=== PATIENT | female | born 1945 | race Caucasian/White ===

== ENCOUNTER 2018-04-21 09:12 | Observation (INO) | payer MEDICARE ==
[2018-04-21 09:28] LABS: POC GLUCOSE 111 mg/dL (70-99)
[2018-04-21 09:56] LABS: ADD MAN DIFF? NO
[2018-04-21 09:58] LABS: BASO # 0.1 x10^3/uL (0.0-0.2); BASO % 1 % (0-3); EOS # 0.1 x10^3/uL (0.0-0.7); EOS % 1 % (0-3); HEMATOCRIT 39.4 % (36.0-47.0); HEMOGLOBIN 13.8 g/dL (12.0-15.5); LYMPH # 1.3 x10^3/uL (1.0-4.8); LYMPH % 17 % (24-48); MEAN CORPUSCULAR HEMOGLOBIN 31 pg (25-35); MEAN CORPUSCULAR HGB CONC 35 g/dL (31-37); MEAN CORPUSCULAR VOLUME 87 fL (79-100); MONO # 0.4 x10^3/uL (0.0-1.1); MONO % 5 % (0-9); NEUT # 5.7 x10^3uL (1.8-7.7); NEUT % 75 % (31-73); PLATELET COUNT 236 x10^3/uL (140-400); RED BLOOD COUNT 4.51 x10^6/uL (3.50-5.40); RED CELL DISTRIBUTION WIDTH 13.4 % (11.5-14.5); WHITE BLOOD COUNT 7.6 x10^3/uL (4.0-11.0)
[2018-04-21 09:59] LABS: BILIRUBIN,URINE NEGATIVE (NEG); CLARITY,URINE CLEAR; COLOR,URINE YELLOW; GLUCOSE,URINE NEGATIVE (NEG); NITRITE,URINE NEGATIVE (NEG); PROTEIN,URINE NEGATIVE (NEG-TRACE)
[2018-04-21 10:05] LABS: ANION GAP 9 (6-14); BLOOD UREA NITROGEN 10 mg/dL (7-20); CALCIUM 9.6 mg/dL (8.5-10.1); CARBON DIOXIDE 31 mmol/L (21-32); CHLORIDE 102 mmol/L (98-107); CREATININE 0.7 mg/dL (0.6-1.0); GFR 82.5; GLUCOSE 111 mg/dL (70-99); POTASSIUM 3.2 mmol/L (3.5-5.1); SODIUM 142 mmol/L (136-145)
[2018-04-21 10:09] LABS: BACTERIA,URINE 0 /HPF (0-FEW); RBC,URINE 0 /HPF (0-2); SQUAMOUS EPITHELIAL CELL,UR OCC /LPF
[2018-04-21 10:12] LABS: ALBUMIN 3.8 g/dL (3.4-5.0); ALK PHOS 84 U/L (46-116); ALT (SGPT) 20 U/L (14-59); AST (SGOT) 22 U/L (15-37); DIRECT BILIRUBIN 0.1 mg/dL (0.0-0.2); LIPASE 92 U/L (73-393); TOTAL BILIRUBIN 0.7 mg/dL (0.2-1.0); TOTAL PROTEIN 7.8 g/dL (6.4-8.2)
[2018-04-21 10:13] LABS: TROPONINI < 0.017 ng/mL (0.000-0.055)
[2018-04-21] MEDS ORDERED: ONDANSETRON PF 4 MG/2 ML VIAL. IV ×2 (11:00→15:00)
[2018-04-21] MEDS: IV NORMAL SALINE 1000ML BAG 1,000 ML IV ×2 (11:30→21:30)
[2018-04-21] MEDS ORDERED: ACETAMINOPHEN PO (12:15)
[2018-04-21] MEDS ORDERED: PHENYLEPHRINE PO (12:15)
[2018-04-21] MEDS ORDERED: CHLORPHENIRAMINE PO (12:15)
[2018-04-21] MEDS ORDERED: LISINOPRIL 20 MG TABLET PO (13:00)
[2018-04-21] MEDS ORDERED: amLODIPine BESYLATE 5 MG TABLET PO (13:00)
[2018-04-21] MEDS ORDERED: ASPIRIN 300 MG SUPP.RECT PR (14:30)
[2018-04-21] MEDS ORDERED: ACETAMINOPHEN 650 MG SUPP.RECT. PR (14:30)
[2018-04-21] MEDS ORDERED: ACETAMINOPHEN 325 MG TABLET. PO ×2 (14:30→15:00)
[2018-04-21] MEDS ORDERED: DOCUSATE SODIUM 100 MG CAPSULE. PO (15:00)
[2018-04-21] MEDS ORDERED: hydrALAZINE 20 MG/ML VIAL. IVP (15:00)
[2018-04-21] MEDS ORDERED: CONTRAST GIVEN. MC (15:15)
[2018-04-21] MEDS: IOHEXOL 300 MG/ML 100ML VIAL. IV (17:22)
[2018-04-21] MEDS: PANTOPRAZOLE 40 MG TABLET.DR. PO (21:38)
[2018-04-21] MEDS: SIMVASTATIN 10 MG TABLET PO (21:38)
[2018-04-21] MEDS: ENOXAPARIN 40 MG/0.4 ML SYRINGE. SQ (21:39)
[2018-04-21] MEDS: ASPIRIN ENTERIC COATED 325 MG TABLET.DR. PO (21:39)
[2018-04-22 04:47] LABS: ADD MAN DIFF? NO
[2018-04-22 04:58] LABS: BASO % 1 % (0-3); EOS # 0.1 x10^3/uL (0.0-0.7); EOS % 2 % (0-3); HEMATOCRIT 36.5 % (36.0-47.0); HEMOGLOBIN 12.9 g/dL (12.0-15.5); LYMPH # 1.6 x10^3/uL (1.0-4.8); LYMPH % 30 % (24-48); MEAN CORPUSCULAR HEMOGLOBIN 31 pg (25-35); MEAN CORPUSCULAR HGB CONC 36 g/dL (31-37); MEAN CORPUSCULAR VOLUME 88 fL (79-100); MONO # 0.3 x10^3/uL (0.0-1.1); MONO % 6 % (0-9); NEUT # 3.2 x10^3uL (1.8-7.7); NEUT % 62 % (31-73); PLATELET COUNT 224 x10^3/uL (140-400); RED BLOOD COUNT 4.14 x10^6/uL (3.50-5.40); RED CELL DISTRIBUTION WIDTH 13.7 % (11.5-14.5); WHITE BLOOD COUNT 5.3 x10^3/uL (4.0-11.0)
[2018-04-22 05:26] LABS: ANION GAP 8 (6-14); BLOOD UREA NITROGEN 10 mg/dL (7-20); CALCIUM 8.9 mg/dL (8.5-10.1); CARBON DIOXIDE 29 mmol/L (21-32); CHLORIDE 104 mmol/L (98-107); CHOLESTEROL 211 mg/dL (0-200); CREATININE 0.7 mg/dL (0.6-1.0); GFR 82.5; GLUCOSE 91 mg/dL (70-99); HDLC 45 mg/dL (40-60); LDLC 145 mg/dL (0-100); NON-HDL CHOLESTEROL 166 mg/dL (0-129); POTASSIUM 3.5 mmol/L (3.5-5.1); SODIUM 141 mmol/L (136-145); TRIGLYCERIDES 104 mg/dL (0-150); VLDLC 21 mg/dL (0-40)
[2018-04-22 05:28] LABS: CHOLESTEROL/HDL RATIO 4.7
[2018-04-22] MEDS: IV NORMAL SALINE 1000ML BAG 1,000 ML IV (07:30)
[2018-04-22] MEDS: ASPIRIN ENTERIC COATED 325 MG TABLET.DR. PO (08:22)
[2018-04-22] MEDS: LISINOPRIL 20 MG TABLET PO (08:22)
[2018-04-22] MEDS: PANTOPRAZOLE 40 MG TABLET.DR. PO (08:22)
[2018-04-22] MEDS: BARIUM SULFATE 40% (APPLE) 148 GM PWD. PO (10:20)
== END 2018-04-22 16:00 | disposition home or self-care (01) ==
LOC: ER 09:12 → 6 SOUTH 10:50
PROVIDERS: Internal Medicine
DX: G45.9 Transient cerebral ischemic attack, unspecified (principal); I10 Essential (primary) hypertension; K21.9 Gastro-esophageal reflux disease without esophagitis; M06.9 Rheumatoid arthritis, unspecified; J40 Bronchitis, not specified as acute or chronic; F32.9 Major depressive disorder, single episode, unspecified; Z82.3 Family history of stroke; Z82.49 Family history of ischemic heart disease and other diseases of the circulatory system; Z86.73 Personal history of transient ischemic attack (TIA), and cerebral infarction without residual deficits; F03.90 Unspecified dementia, unspecified severity, without behavioral disturbance, psychotic disturbance, mood disturbance, and anxiety; Z72.820 Sleep deprivation; Z90.710 Acquired absence of both cervix and uterus
CPT/HCPCS: 36415; 70450; 70496; 70498; 70551; 74230; 80048; 80061; 80076; 81001; 82962; 83690; 84484; 85025; 87086; 92610-GN; 92611-GN; 93005; 93306; 96360; 96361; 96372; 97161-GP; 97165-GO; 99285-25; G0378; G0379; G8978-CI-GP; G8979-CI-GP; G8980-CI-GP; G8987-CH-GO; G8988-CH-GO; G8989-CH-GO; G8996-CI-GN; G8996-CK-GN; G8997-CI-GN; G8998-CI-GN; J1650; J7030; Q9967

== ENCOUNTER 2019-01-20 17:59 | Inpatient (IN) | payer MEDICARE ==
[~2019-01-20] VITALS: Ht 157.5 cm; Wt 84.8 kg
[~2019-01-20 17:59] MED LIST: ASPI325T11 PO; DIPH-426 PO; LISI-130 PO; SIMV10TA3 PO
--- NOTE | 2019-01-20 18:41 | PHYS DOC ---
Past Medical History Past Medical History: GERD, Hypertension, Other Additional Past Medical Histor: seasoal allergies, eczema Past Surgical History: Hysterectomy, Other Additional Past Surgical Histo: right upper lobectomy, dilation and curretage Alcohol Use: None Drug Use: None Adult General Chief Complaint Chief Complaint: SHORTNESS OF BREATH HPI HPI Patient is a 73 year old female who presents with a chief complaint of shortness of breath and high blood pressure. Prior to arrival patient noted her blood pressure to be 190s systolic. In addition to her high blood pressure she hasn't had shortness of breath. Shortness of breath of been ongoing for 1 week progressively getting worse. Dyspnea with exertion. Cough without sputum production. Patient also states she's had some discomfort in her chest on and off for 1 week. She attributed this discomfort to acid reflux. Because of the above Eanes patient scheduled appointment to see her primary care physician which is on Sunday. This evening symptoms became worse so patient was told to present to the emergency department from evaluation. Patient's oxygen saturation 86% on room air. She does not wear oxygen at home. Review of Systems Review of Systems Review of systems: Constitutional symptoms- No fever, no chills. Eyes- No Discharge, No Visual Loss, Respiratory symptoms-positive shortness of breath, No wheezing, positive Dyspnea on Exertion Cardiovascular Systems; positive chest pain.No Palpitations, No syncope Gastrointestinal symptoms: NO abdominal pain, no nausea, no vomiting or diarrhea. Genitourinary symptoms: No dysuria. No vaginal bleeding. Musculoskeletal symptoms: No back pain or extremity pain. NEUROLOGICAL Symptoms: No headache, no generalized weakness; No focal Weakness, All other systems were reviewed and found to be within normal limits, except as documented in this note. Current Medications Current Medications Current Medications Medications (Trade) Dose Ordered Sig/Kaity Start Time Stop Time Status Last Admin Dose Admin Labetalol HCl (Normodyne Iv Push) 20 mg 1X ONCE 01/20/19 20:15 01/20/19 20:16 Allergies Allergies Allergies Coded Allergies Type Severity Reaction Last Updated Verified Penicillins Allergy Intermediate 04/22/18 No cefaclor Allergy Intermediate 04/22/18 No codeine Allergy Intermediate 04/22/18 No demeclocycline Allergy Intermediate 04/22/18 No erythromycin base Allergy Intermediate 04/22/18 No meperidine Allergy Intermediate 04/22/18 No methylphenidate Allergy Intermediate 04/22/18 No nystatin Allergy Intermediate 04/22/18 No pentazocine Allergy Intermediate 04/22/18 No propoxyphene Allergy Intermediate 04/22/18 No pseudoephedrine Allergy Intermediate 04/22/18 No triamcinolone Allergy Intermediate 04/22/18 No triprolidine Allergy Intermediate 04/22/18 No Physical Exam Physical Exam General: alert, no acute distress. Skin: warm, dry and intact. Head:: Normocephalic, atraumatic. Neck; Supple. Trachea midline. Eyes: pupils equal, round, reactive to light accommodation. CARDIOVASCULAR: Regular rate and rhythm. RESPIRATORY: No respiratory distress. Back: Full range of motion. MUSCULOSKELETAL: Full range of motion of bilateral upper and lower extremities. GASTROINTESTINAL: ABD soft without rebound or guarding. NEUROLOGICAL: Alert and noted to person, place and time. No neurological deficits observed. Psychiatric: Cooperative. Normal judgment Current Patient Data Vital Signs Vital Signs Date Time Temp Pulse Resp B/P (MAP) Pulse Ox O2 Delivery O2 Flow Rate FiO2 01/20/19 19:02 68 177/76 (109) 92 Nasal Cannula 2.0 01/20/19 18:38 98.1 20 98.1 Lab Values Laboratory Tests Test 01/20/19 18:45 White Blood Count 4.8 x10^3/uL (4.0-11.0) Red Blood Count 4.14 x10^6/uL (3.50-5.40) Hemoglobin 12.6 g/dL (12.0-15.5) Hematocrit 37.8 % (36.0-47.0) Mean Corpuscular Volume 91 fL (79-100) Mean Corpuscular Hemoglobin 30 pg (25-35) Mean Corpuscular Hemoglobin Concent 33 g/dL (31-37) Red Cell Distribution Width 14.3 % (11.5-14.5) Platelet Count 220 x10^3/uL (140-400) Neutrophils (%) (Auto) 75 % (31-73) H Lymphocytes (%) (Auto) 17 % (24-48) L Monocytes (%) (Auto) 5 % (0-9) Eosinophils (%) (Auto) 2 % (0-3) Basophils (%) (Auto) 1 % (0-3) Neutrophils # (Auto) 3.6 x10^3uL (1.8-7.7) Lymphocytes # (Auto) 0.8 x10^3/uL (1.0-4.8) L Monocytes # (Auto) 0.2 x10^3/uL (0.0-1.1) Eosinophils # (Auto) 0.1 x10^3/uL (0.0-0.7) Basophils # (Auto) 0.0 x10^3/uL (0.0-0.2) Sodium Level 143 mmol/L (136-145) Potassium Level 3.5 mmol/L (3.5-5.1) Chloride Level 104 mmol/L (98-107) Carbon Dioxide Level 33 mmol/L (21-32) H Anion Gap 6 (6-14) Blood Urea Nitrogen 10 mg/dL (7-20) Creatinine 0.8 mg/dL (0.6-1.0) Estimated GFR (Cockcroft-Gault) 70.5 BUN/Creatinine Ratio 13 (6-20) Glucose Level 103 mg/dL (70-99) H Calcium Level 8.8 mg/dL (8.5-10.1) Total Bilirubin 0.7 mg/dL (0.2-1.0) Aspartate Amino Transferase (AST) 16 U/L (15-37) Alanine Aminotransferase (ALT) 11 U/L (14-59) L Alkaline Phosphatase 67 U/L (46-116) Troponin I Quantitative 0.024 ng/mL (0.000-0.055) FI-Fzq-T-Type Natriuretic Peptide 2323 pg/mL (0-124) H Total Protein 7.1 g/dL (6.4-8.2) Albumin 3.2 g/dL (3.4-5.0) L Albumin/Globulin Ratio 0.8 (1.0-1.7) L Laboratory Tests 01/20/19 18:45 Laboratory Tests 01/20/19 18:45 EKG EKG EKG time 1907 Heart rate 71 normal sinus rhythm no ST elevations no ST depressions no acute OR Radiology/Procedures Radiology/Procedures [] Course & Med Decision Making Course & Med Decision Making Pertinent Labs and Imaging studies reviewed. (See chart for details) []Patient was evaluated for chief complaint. Workup consisted of laboratory analysis and radiologic imaging. Results reviewed and discussed with patient. Patient noted to have a BNP greater than 2000 chest x-ray shows per my wet read bilateral pleural effusions. His initial oxygen saturation 84% on room air. Improved to the mid 90s on 2 L nasal cannula. During reevaluation patient's blood pressure greater than 200 systolic. Labetalol 20 mg IV push ordered for blood pressure. Patient was admitted to the hospitalist for further evaluation and treatment. Dragon Disclaimer Dragon Disclaimer This electronic medical record was generated, in whole or in part, using a voice recognition dictation system. Departure Departure Impression: Primary Impression: Hypertension Additional Impressions: Dyspnea Hypoxia Elevated brain natriuretic peptide (BNP) level Disposition: 09 ADMITTED INPATIENT Admitting Physician: Blanca Holm Condition: STABLE Referrals: RAJEEV DESHPANDE MD (PCP) Problem Qualifiers LOUISA FERNANDEZ I DO Jan 20, 2019 18:41
[2019-01-20 18:58] LABS: BASO % 1 % (0-3); EOS # 0.1 x10^3/uL (0.0-0.7); EOS % 2 % (0-3); HEMATOCRIT 37.8 % (36.0-47.0); HEMOGLOBIN 12.6 g/dL (12.0-15.5); LYMPH # 0.8 x10^3/uL (1.0-4.8); LYMPH % 17 % (24-48); MEAN CORPUSCULAR HEMOGLOBIN 30 pg (25-35); MEAN CORPUSCULAR HGB CONC 33 g/dL (31-37); MEAN CORPUSCULAR VOLUME 91 fL (79-100); MONO # 0.2 x10^3/uL (0.0-1.1); MONO % 5 % (0-9); NEUT # 3.6 x10^3uL (1.8-7.7); NEUT % 75 % (31-73); PLATELET COUNT 220 x10^3/uL (140-400); RED BLOOD COUNT 4.14 x10^6/uL (3.50-5.40); RED CELL DISTRIBUTION WIDTH 14.3 % (11.5-14.5); WHITE BLOOD COUNT 4.8 x10^3/uL (4.0-11.0)
[2019-01-20 19:13] LABS: CALCIUM 8.8 mg/dL (8.5-10.1); CREATININE 0.8 mg/dL (0.6-1.0); GFR 70.5; POTASSIUM 3.5 mmol/L (3.5-5.1)
[2019-01-20 19:18] LABS: ALBUMIN 3.2 g/dL (3.4-5.0); ALBUMIN/GLOBULIN RATIO 0.8 (1.0-1.7); TOTAL BILIRUBIN 0.7 mg/dL (0.2-1.0); TOTAL PROTEIN 7.1 g/dL (6.4-8.2)
[2019-01-20] MEDS ORDERED: LABETALOL 20 MG/4 ML DISP.SYRIN. IVP ONE (20:15)
[2019-01-20] MEDS ORDERED: ONDANSETRON PF 4 MG/2 ML VIAL. IV PRN (20:30)
--- NOTE | 2019-01-20 20:46 | EKG ---
[facility] [address] [place] [address] Test Date: 2019-01-20 Test Time: 19:07:09 Pat Name: JERRELL WALKER Department: Room: Gender: F [employer]: : 1945 Requested By: LOUISA FERNANDEZ Order Number: [id number] Reading MD: Eros Sandoval MD Measurements Intervals [place] Rate: 71 P: 27 IA: 176 QRS: -5 QRSD: 78 T: 61 QT: 446 QTc: 485 Interpretive Statements SINUS RHYTHM Electronically Signed On 01-28-2019 23:23:56 CDT by Eros Sandoval MD
[2019-01-20] MEDS ORDERED: FUROSEMIDE 20 MG/2 ML VIAL. IVP ONE (21:00)
--- NOTE | 2019-01-20 21:36 | NUR ---
The patient, JERRELL WALKER, 73 y/o, F admitted by IRMA HOOK MD, was given written information regarding hospital policies, unit procedures and contact persons. Valuables were checked and The patient, JERRELL WALKER, 73 y/o, F admitted by IRMA HOOK MD, was given written information regarding hospital policies, unit procedures and contact persons. Valuables were checked and left with her. .
[2019-01-20 23:00] VITALS: BP 164/66
--- NOTE | 2019-01-21 00:59 | RAD ---
Indication:SOA TECHNIQUE:Portable AP chest X-ray COMPARISON:None FINDINGS: Heart is moderately enlarged in size. Diffuse bilateral interstitial opacities are seen. Patchy opacity in the right costophrenic recess. Bilateral blunting of the costophrenic angles. No pneumothorax. Visualized bony thorax within normal limits. IMPRESSION: Findings suggests interstitial pulmonary edema with trace bilateral pleural effusions. Electronically signed by: Christian Crouch DO (01/21/2019 12:55 AM) [facility]
[2019-01-21 03:00] VITALS: BP 159/71
[2019-01-21] MEDS ORDERED: PSEU120T9 PO (04:30)
[2019-01-21] MEDS ORDERED: ASPI1TAB21 PO (04:30)
[2019-01-21] MEDS ORDERED: PANT40GR PO (04:30)
[2019-01-21 07:00] VITALS: BP 179/70
[2019-01-21] MEDS ORDERED: IBUPROFEN 200 MG TABLET. PO PRN (07:15)
[2019-01-21] MEDS ORDERED: ASA/APAP/CAFFEINE 250/250/65MG TABLET. PO PRN (07:45)
[2019-01-21] MEDS: PANTOPRAZOLE 40 MG TABLET.DR. PO SCH (08:46)
[2019-01-21] MEDS: LISINOPRIL 20 MG TABLET PO SCH (08:47)
[2019-01-21 11:00] VITALS: BP 143/56
[2019-01-21] MEDS: amLODIPine BESYLATE 5 MG TABLET PO SCH (12:13)
--- NOTE | 2019-01-21 13:46 | PDOC1 ---
History and Physical Date of Admission Date of Admission 01/21/2019 Identification/Chief Complaint Chief Complaint I couldn't breathe History of Present Illness History of Present Illness Miky is a 73-year-old female with past medical history of COPD which seems to be severe in nature. She has been her usual state of health prior to her admission when she started complaining of progressive worsening of her dyspnea that started during exertion and now has progressed even at rest. The patient has tried titrating up her oxygen level at home and has gone up to 3 L/m with very little relief of her symptoms that she describes as a sensation of "drowning". The patient says that she also has very little intolerance to exercise especially going uphill. At the time my evaluation she is in no apparent distress sitting in chair comfortably. Patient tried to self administer more oxygen at home and she noted also that her blood pressure was quite high. She called her primary care physician's office and she was instructed to follow up with them this Sunday by at her blood pressure kept climbing and got to a level of 580 over greater than 100 as per the patient which prompted her visit to the emergency department for further evaluation and treatment. The patient has been admitted for evaluation of respiratory status COPD exacerbation. At the time of my note the patient is able to speak in full sentences no increased respiratory work has been noted. The patient denies having been intubated for COPD exacerbation, no recent changes to her medications. No other complaints were voiced. The patient has had contact with foot a few people with cold-like symptoms in the last week and from this prompted her symptoms as well, she is not exhibiting fever chills no myalgias no generalized malaise no nausea vomiting or diarrhea were reported no abdominal pain patient is being admitted for further evaluation and treatment All concerns were addressed to the best of my abilities plan of care explained in detail. Patient is a 73 year old female who presents with a chief complaint of shortness of breath and high blood pressure. Prior to arrival patient noted her blood pressure to be 190s systolic. In addition to her high blood pressure she hasn't had shortness of breath. Shortness of breath of been ongoing for 1 week progressively getting worse. Dyspnea with exertion. Cough without sputum production. Patient also states she's had some discomfort in her chest on and off for 1 week. She attributed this discomfort to acid reflux. Because of the above Eanes patient scheduled appointment to see her primary care physician which is on Sunday. This evening symptoms became worse so patient was told to present to the emergency department from evaluation. Patient's oxygen saturation 86% on room air. She does not wear oxygen at home. Past Medical History Cardiovascular: HTN Pulmonary: Bronchitis GI: GERD Psych: Depression Rheumatologic: Rheumatoid arthritis Past Surgical History Past Surgical History: Hysterectomy, Other Family History Family History: Hypertension Social History ALCOHOL: none Drugs: None Current Problem List Problem List Problems Medical Problems: (1) Dyspnea Status: Acute (2) Elevated brain natriuretic peptide (BNP) level Status: Acute (3) Hypertension Status: Acute (4) Hypoxia Status: Acute Current Medications Current Medications Current Medications Medications (Trade) Dose Ordered Sig/Kaity Start Time Stop Time Status Last Admin Dose Admin Acetaminophen/ Aspirin/Caffeine (Excedrin Migraine) 1 tab PRN DAILY PRN 01/21/19 07:45 Amlodipine Besylate (Norvasc) 5 mg DAILY 01/21/19 11:30 01/21/19 12:13 5 MG Furosemide (Lasix) 20 mg 1X ONCE 01/20/19 21:00 01/20/19 21:01 DC 01/20/19 20:52 20 MG Ibuprofen (Motrin) 400 mg PRN Q6HRS PRN 01/21/19 07:15 01/21/19 07:24 200 MG Labetalol HCl (Normodyne Iv Push) 20 mg 1X ONCE 01/20/19 20:15 01/20/19 20:18 DC 01/20/19 20:30 20 MG Lisinopril (Prinivil) 40 mg DAILY 01/21/19 09:00 01/21/19 08:47 40 MG Ondansetron HCl (Zofran) 4 mg PRN Q8HRS PRN 01/20/19 20:30 01/21/19 20:29 Pantoprazole Sodium (Protonix) 40 mg DAILYAC 01/21/19 08:00 01/21/19 08:46 40 MG Allergies Allergies Allergies Coded Allergies Type Severity Reaction Last Updated Verified Penicillins Allergy Intermediate 04/22/18 No cefaclor Allergy Intermediate 04/22/18 No codeine Allergy Intermediate 04/22/18 No demeclocycline Allergy Intermediate 04/22/18 No erythromycin base Allergy Intermediate 04/22/18 No meperidine Allergy Intermediate 04/22/18 No methylphenidate Allergy Intermediate 04/22/18 No nystatin Allergy Intermediate 04/22/18 No pentazocine Allergy Intermediate 04/22/18 No propoxyphene Allergy Intermediate 04/22/18 No pseudoephedrine Allergy Intermediate 04/22/18 No triamcinolone Allergy Intermediate 04/22/18 No triprolidine Allergy Intermediate 04/22/18 No ROS Review of System CONSTITUTIONAL: No fever or chills EYES: No recent changes SKIN: No rash or itching CARDIOVASCULAR: No chest pain, syncope, palpitations, or edema RESPIRATORY: No SOB or cough GASTROINTESTINAL: No nausea, vomiting or abdominal pain NEUROLOGICAL: No headaches or weakness ENDOCRINE: No cold or heat intolerance GENITOURINARY: No urgency or frequency of urination MUSCULOSKELETAL: No back pain or joint pain LYMPHATICS: No enlarged lymph nodes PSYCHIATRIC: No anxiety or depression Physical Exam Physical Exam Gen.: Obese in no apparent distress Head: Normal shape atraumatic Eyes: Pupils equal reactive to light and accommodation, normal conjunctivae and lids Ears: Normal shape Nose: Normal shape no trauma Mouth: No exudates of the back of throat no thrush no lesions Neck: Supple no JVD no carotid bruit or lymphadenopathy no thyromegaly Chest: Lungs clear to auscultation with good inspiratory effort no crackles rales or rhonchi distant breath sounds due to body habitus Cardiovascular: S1-S2 regular rhythm no murmurs gallops or rubs Abdomen: Bowel sounds present soft nontender no hepatosplenomegaly appreciated sign Extremities: No clubbing no cyanosis no edema peripheral pulses palpated bilaterally Neurological: Alert awake oriented in person time place and situation, cranial nerves II through XII intact, no motor or sensory deficits appreciated Psych: Appropriate mood, cooperative Vitals Vitals Vital Signs Date Time Temp Pulse Resp B/P (MAP) Pulse Ox O2 Delivery O2 Flow Rate FiO2 01/21/19 12:13 61 143/56 01/21/19 11:00 97.8 17 94 Nasal Cannula 2.0 97.8 Labs Labs Laboratory Tests Test 01/20/19 18:45 01/21/19 02:20 White Blood Count 4.8 x10^3/uL (4.0-11.0) Red Blood Count 4.14 x10^6/uL (3.50-5.40) Hemoglobin 12.6 g/dL (12.0-15.5) Hematocrit 37.8 % (36.0-47.0) Mean Corpuscular Volume 91 fL (79-100) Mean Corpuscular Hemoglobin 30 pg (25-35) Mean Corpuscular Hemoglobin Concent 33 g/dL (31-37) Red Cell Distribution Width 14.3 % (11.5-14.5) Platelet Count 220 x10^3/uL (140-400) Neutrophils (%) (Auto) 75 % (31-73) Lymphocytes (%) (Auto) 17 % (24-48) Monocytes (%) (Auto) 5 % (0-9) Eosinophils (%) (Auto) 2 % (0-3) Basophils (%) (Auto) 1 % (0-3) Neutrophils # (Auto) 3.6 x10^3uL (1.8-7.7) Lymphocytes # (Auto) 0.8 x10^3/uL (1.0-4.8) Monocytes # (Auto) 0.2 x10^3/uL (0.0-1.1) Eosinophils # (Auto) 0.1 x10^3/uL (0.0-0.7) Basophils # (Auto) 0.0 x10^3/uL (0.0-0.2) Sodium Level 143 mmol/L (136-145) Potassium Level 3.5 mmol/L (3.5-5.1) Chloride Level 104 mmol/L (98-107) Carbon Dioxide Level 33 mmol/L (21-32) Anion Gap 6 (6-14) Blood Urea Nitrogen 10 mg/dL (7-20) Creatinine 0.8 mg/dL (0.6-1.0) Estimated GFR (Cockcroft-Gault) 70.5 BUN/Creatinine Ratio 13 (6-20) Glucose Level 103 mg/dL (70-99) Calcium Level 8.8 mg/dL (8.5-10.1) Total Bilirubin 0.7 mg/dL (0.2-1.0) Aspartate Amino Transf (AST/SGOT) 16 U/L (15-37) Alanine Aminotransferase (ALT/SGPT) 11 U/L (14-59) Alkaline Phosphatase 67 U/L (46-116) Troponin I Quantitative 0.024 ng/mL (0.000-0.055) < 0.017 ng/mL (0.000-0.055) IZ-[id number]-[id number]-Type Natriuretic Peptide 2323 pg/mL (0-124) Total Protein 7.1 g/dL (6.4-8.2) Albumin 3.2 g/dL (3.4-5.0) Albumin/Globulin Ratio 0.8 (1.0-1.7) Laboratory Tests Test 01/20/19 18:45 01/21/19 02:20 White Blood Count 4.8 x10^3/uL (4.0-11.0) Red Blood Count 4.14 x10^6/uL (3.50-5.40) Hemoglobin 12.6 g/dL (12.0-15.5) Hematocrit 37.8 % (36.0-47.0) Mean Corpuscular Volume 91 fL (79-100) Mean Corpuscular Hemoglobin 30 pg (25-35) Mean Corpuscular Hemoglobin Concent 33 g/dL (31-37) Red Cell Distribution Width 14.3 % (11.5-14.5) Platelet Count 220 x10^3/uL (140-400) Neutrophils (%) (Auto) 75 % (31-73) Lymphocytes (%) (Auto) 17 % (24-48) Monocytes (%) (Auto) 5 % (0-9) Eosinophils (%) (Auto) 2 % (0-3) Basophils (%) (Auto) 1 % (0-3) Neutrophils # (Auto) 3.6 x10^3uL (1.8-7.7) Lymphocytes # (Auto) 0.8 x10^3/uL (1.0-4.8) Monocytes # (Auto) 0.2 x10^3/uL (0.0-1.1) Eosinophils # (Auto) 0.1 x10^3/uL (0.0-0.7) Basophils # (Auto) 0.0 x10^3/uL (0.0-0.2) Sodium Level 143 mmol/L (136-145) Potassium Level 3.5 mmol/L (3.5-5.1) Chloride Level 104 mmol/L (98-107) Carbon Dioxide Level 33 mmol/L (21-32) Anion Gap 6 (6-14) Blood Urea Nitrogen 10 mg/dL (7-20) Creatinine 0.8 mg/dL (0.6-1.0) Estimated GFR (Cockcroft-Gault) 70.5 BUN/Creatinine Ratio 13 (6-20) Glucose Level 103 mg/dL (70-99) Calcium Level 8.8 mg/dL (8.5-10.1) Total Bilirubin 0.7 mg/dL (0.2-1.0) Aspartate Amino Transf (AST/SGOT) 16 U/L (15-37) Alanine Aminotransferase (ALT/SGPT) 11 U/L (14-59) Alkaline Phosphatase 67 U/L (46-116) Troponin I Quantitative 0.024 ng/mL (0.000-0.055) < 0.017 ng/mL (0.000-0.055) NC-Sdv-[id number]-Type Natriuretic Peptide 2323 pg/mL (0-124) Total Protein 7.1 g/dL (6.4-8.2) Albumin 3.2 g/dL (3.4-5.0) Albumin/Globulin Ratio 0.8 (1.0-1.7) VTE Prophylaxis Ordered VTE Prophylaxis Devices: No VTE Pharmacological Prophylaxi: Yes Assessment/Plan Assessment/Plan Acute COPD exacerbation Hypertensive urgency History of coronary artery disease status post CABG Seasonal allergies History of COPD which seems to be advanced in nature Plan We'll continue the patient on levofloxacin Guaifenesin for relief of her cough Will resume home medications We'll monitor hemodynamics Encourage ambulation Further recommendations based on the clinical course DVT prophylaxis with morphine BOLA SCHAEFER MD Jan 21, 2019 13:46
--- NOTE | 2019-01-21 14:26 | PDOC2 ---
AIME FREITAS BARIATRIC COORDINATOR 01/21/19 1426: CARDIAC CONSULT DATE OF CONSULT Date of Consult DATE: 01/21/19 TIME: 14:18 REASON FOR CONSULT Reason for Consult: Elevated BNP REFERRING PHYSICIAN Referring Physician: Dr. Pryor SOURCE Source: Chart review, Patient HISTORY OF PRESENT ILLNESS HISTORY OF PRESENT ILLNESS This is a 73 yo female who presented secondary to shortness of breath. Presented for the last week. Progressively worsening. Has a history of allergies. Has been congested. Taking Sudafed OTC. Denies any chest pain, palpitations, dizziness, diaphoresis, RODRIGUEZ, or nausea/vomiting. Has had some orthopnea the last couple of days. No LE edema. Blood pressure significantly elevated upon arrival to the ED. PAST MEDICAL HISTORY Cardiovascular: HTN Pulmonary: No pertinent hx CENTRAL NERVOUS SYSTEM: Dementia GI: GERD Heme/Onc: No pertinent hx Hepatobiliary: No pertinent hx Psych: Anxiety, Depression Musculoskeletal: Osteoarthritis Rheumatologic: No pertinent hx Infectious disease: No pertinent hx ENT: No pertinent hx Renal/: No pertinent hx Endocrine: No pertinent hx Dermatology: No pertinent hx PAST SURGICAL HISTORY Past Surgical History: Hysterectomy FAMILY HISTORY Family History: Hypertension SOCIAL HISTORY Smoke: No ALCOHOL: none Drugs: None Lives: with Family CURRENT MEDICATIONS CURRENT MEDICATIONS Current Medications Medications (Trade) Dose Ordered Sig/Kaity Route PRN Reason Start Time Stop Time Status Last Admin Dose Admin Labetalol HCl (Normodyne Iv Push) 20 mg 1X ONCE IVP 01/20/19 20:15 01/20/19 20:18 DC 01/20/19 20:30 Furosemide (Lasix) 20 mg 1X ONCE IVP 01/20/19 21:00 01/20/19 21:01 DC 01/20/19 20:52 Ibuprofen (Motrin) 400 mg PRN Q6HRS PRN PO INFLAMMATION 01/21/19 07:15 01/21/19 07:24 Lisinopril (Prinivil) 40 mg DAILY PO 01/21/19 09:00 01/21/19 08:47 Pantoprazole Sodium (Protonix) 40 mg DAILYAC PO 01/21/19 08:00 01/21/19 08:46 Amlodipine Besylate (Norvasc) 5 mg DAILY PO 01/21/19 11:30 01/21/19 12:13 ALLERGIES ALLERGIES: Coded Allergies: Penicillins (Verified Allergy, Intermediate, 01/22/19) cefaclor (Verified Allergy, Intermediate, 01/22/19) codeine (Verified Allergy, Intermediate, 01/22/19) demeclocycline (Verified Allergy, Intermediate, 01/22/19) erythromycin base (Verified Allergy, Intermediate, 01/22/19) meperidine (Verified Allergy, Intermediate, 01/22/19) methylphenidate (Verified Allergy, Intermediate, 01/22/19) nystatin (Verified Allergy, Intermediate, 01/22/19) pentazocine (Verified Allergy, Intermediate, 01/22/19) propoxyphene (Verified Allergy, Intermediate, 01/22/19) pseudoephedrine (Verified Allergy, Intermediate, 01/22/19) triamcinolone (Verified Allergy, Intermediate, 01/22/19) triprolidine (Verified Allergy, Intermediate, 01/22/19) ROS Review of System 14 point positives noted above in HPI PHYSICAL EXAM General: Alert, Oriented X3 HEENT: Atraumatic Lungs: Other (fine bibasilar crackles) Heart: Regular rate, Normal S1, Normal S2, Other (tele SR/SB) Abdomen: Soft, No tenderness Extremities: No edema, Normal pulses Skin: No significant lesion Neuro: Normal speech, Sensation intact Psych/Mental Status: Mental status NL, Mood NL MUSCULOSKELETAL: Osteoarthritic changes both hands VITALS VITALS Vital Signs Date Time Temp Pulse Resp B/P (MAP) Pulse Ox O2 Delivery O2 Flow Rate FiO2 01/21/19 12:13 61 143/56 01/21/19 11:00 97.8 17 94 Nasal Cannula 2.0 97.8 LABS Lab: Laboratory Tests Test 01/20/19 18:45 01/21/19 02:20 White Blood Count 4.8 x10^3/uL (4.0-11.0) Red Blood Count 4.14 x10^6/uL (3.50-5.40) Hemoglobin 12.6 g/dL (12.0-15.5) Hematocrit 37.8 % (36.0-47.0) Mean Corpuscular Volume 91 fL (79-100) Mean Corpuscular Hemoglobin 30 pg (25-35) Mean Corpuscular Hemoglobin Concent 33 g/dL (31-37) Red Cell Distribution Width 14.3 % (11.5-14.5) Platelet Count 220 x10^3/uL (140-400) Neutrophils (%) (Auto) 75 % (31-73) Lymphocytes (%) (Auto) 17 % (24-48) Monocytes (%) (Auto) 5 % (0-9) Eosinophils (%) (Auto) 2 % (0-3) Basophils (%) (Auto) 1 % (0-3) Neutrophils # (Auto) 3.6 x10^3uL (1.8-7.7) Lymphocytes # (Auto) 0.8 x10^3/uL (1.0-4.8) Monocytes # (Auto) 0.2 x10^3/uL (0.0-1.1) Eosinophils # (Auto) 0.1 x10^3/uL (0.0-0.7) Basophils # (Auto) 0.0 x10^3/uL (0.0-0.2) Sodium Level 143 mmol/L (136-145) Potassium Level 3.5 mmol/L (3.5-5.1) Chloride Level 104 mmol/L (98-107) Carbon Dioxide Level 33 mmol/L (21-32) Anion Gap 6 (6-14) Blood Urea Nitrogen 10 mg/dL (7-20) Creatinine 0.8 mg/dL (0.6-1.0) Estimated GFR (Cockcroft-Gault) 70.5 BUN/Creatinine Ratio 13 (6-20) Glucose Level 103 mg/dL (70-99) Calcium Level 8.8 mg/dL (8.5-10.1) Total Bilirubin 0.7 mg/dL (0.2-1.0) Aspartate Amino Transf (AST/SGOT) 16 U/L (15-37) Alanine Aminotransferase (ALT/SGPT) 11 U/L (14-59) Alkaline Phosphatase 67 U/L (46-116) Troponin I Quantitative 0.024 ng/mL (0.000-0.055) < 0.017 ng/mL (0.000-0.055) KT-Rez-H-Type Natriuretic Peptide 2323 pg/mL (0-124) Total Protein 7.1 g/dL (6.4-8.2) Albumin 3.2 g/dL (3.4-5.0) Albumin/Globulin Ratio 0.8 (1.0-1.7) ECHOCARDIOGRAM ECHOCARDIOGRAM <Conclusion> The left ventricular systolic function is normal and the ejection fraction is within normal range. EF 55% There is normal LV segmental wall motion. No significant valvular disease. DATE: 04/22/18 1339 ASSESSMENT/PLAN ASSESSMENT/PLAN 1. Acute on chronic diastolic HF; NT Pro BNP elevated. CXR with pulmonary edema. most probably secondary to #2. Improved with IV Lasix. Echo 04/2018 with preserved LV systolic function. 2. Accelerated hypertension; was taking Sudafed at home. better controlled. Lisinopril resumed. Norvasc added 3. Bradycardia, sinus. No significant pauses noted on tele. Mean HR 50 Recommendations Mild diuresis Maintain BP control. Norvasc Added. Hydralazine IV PRN Avoid AV berhane blocking agents Consider repeating echo and further ischemic workup with a stress test on an outpatient basis GEOFFREY CANTU MD 01/21/19 1618: CARDIAC CONSULT ASSESSMENT/PLAN ASSESSMENT/PLAN Patient seen and examined. Agree with LITHODUPLICATOR OPERATOR's assessment and plan. Acute on chronic diastolic heart failure probably precipitated secondary to accelerated hypertension Symptoms significantly improved after diuresis Blood pressure better controlled since admission 2-D echo in April 2018 showed normal LV systolic function We will consider repeat 2-D echo and ischemic evaluation with Lexiscan nuclear stress test as an outpatient Thank you for your consultation AIME FREITAS APRN Jan 21, 2019 14:26 GEOFFREY CANTU MD Jan 21, 2019 16:18
[2019-01-21] MEDS ORDERED: FUROSEMIDE 40 MG TABLET. PO ONE (14:45)
[2019-01-21 15:00] VITALS: BP 131/41
[2019-01-21] MEDS ORDERED: hydrALAZINE 20 MG/ML VIAL. IVP PRN (18:00)
[2019-01-21 19:00] VITALS: BP 147/75
[2019-01-21] MEDS: NYSTATIN TOPICAL POWDER 15GM BOTTLE. TP SCH (21:47)
[2019-01-21 23:00] VITALS: BP 142/65
[2019-01-22 03:00] VITALS: BP 133/70
[2019-01-22] MEDS: PANTOPRAZOLE 40 MG TABLET.DR. PO SCH (07:18)
[2019-01-22] MEDS: amLODIPine BESYLATE 5 MG TABLET PO SCH (07:18)
[2019-01-22] MEDS: LISINOPRIL 20 MG TABLET PO SCH (07:19)
[2019-01-22] MEDS: NYSTATIN TOPICAL POWDER 15GM BOTTLE. TP SCH (07:19)
[2019-01-22 07:53] VITALS: BP 161/63
[2019-01-22] MEDS ORDERED: NYST60PO TP (09:48)
[2019-01-22] MEDS ORDERED: AMLO5TAB10 PO (09:48)
[2019-01-22] MEDS ORDERED: ACYC800T PO (09:48)
--- NOTE | 2019-01-22 09:50 | SNU/HH DC ---
DISCHARGE WITH HOME HEALTH DISCHARGE INFORMATION: Discharge Date: Jan 22, 2019 Final Diagnosis: Problems Medical Problems: (1) Dyspnea Status: Acute (2) Elevated brain natriuretic peptide (BNP) level Status: Acute (3) Hypertension Status: Acute (4) Hypoxia Status: Acute Condition on Discharge: Stable CODE STATUS: Code Status: Full HOME HEALTH: Face to Face: I certify this patient is under my care and that I, or a nurse practitioner or physician's drafter assistant working with me, had a face to face encounter that meets the physician face to face encounter requirements with this patient on 01/22 Medical Complications: CHF Physical Therapy For: Evalulation/Treatment Occupational Therapy For: Evaluation/Treatment POST DISCHARGE ORDERS: Wound/Incision Care: No wound care needed FOLLOW-UP: Follow up with: Dr. Lopes this week Follow Up With: allergy, dermatology as avail TREATMENT/EQUIPMENT ORDERS: Adaptive Equipment Issued: None CERTIFICATION STATEMENT: Certification Statement: Certification Statement: Based on the above finding, I certify that this patient is confined to the home and needs intermittent mcfp care, physical therapy and/or speech therapy, or continues to need occupational therapy.~ This patient is under my care, and I have initiated the establishment of the plan of care.~ This patient will be followed by myself or a community physician who will periodically review the plan of care. Home Meds Active Scripts Acyclovir (ACYCLOVIR) 800 Mg Tablet, 1 TAB PO 5XDAY for shingles, #35 TAB Prov:CUONG AGUILAR MD 01/22/19 Nystatin (NYSTOP) 60 Gm Powder, 1 ASUNCION TP BID for skin redness for 30 Days, MISC Prov:CUONG AGUILAR MD 01/22/19 Amlodipine Besylate (AMLODIPINE BESYLATE) 5 Mg Tablet, 5 MG PO DAILY for hypertension, #30 TAB 2 Refills Prov:CUONG AGUILAR MD 01/22/19 Lisinopril (LISINOPRIL) 40 Mg Tablet, 40 MG PO DAILY for 60 Days, #60 TAB Prov:IRMA HOOK MD 04/22/18 Reported Medications Aspirin/Acetaminophen/Caffeine (EXCEDRIN MIGRAINE GELTAB) 1 Each Tablet, 1 EACH PO PRN DAILY PRN for HEADACHE, TAB 01/21/19 Pantoprazole Sodium (PROTONIX) 40 Mg Granpkt.dr 40 MG PO DAILY for GERD, TAB 01/21/19 Discontinued Reported Medications Pseudoephedrine Hcl (SUDAFED 12-HOUR) 120 Mg Tablet.er, 120 MG PO PRN PRN for ALLERGIES, TAB.SR 01/21/19 Diphenhydramine Hcl (ALLERGY) 25 Mg Tablet, PO PRN for ALLERGIES 06/28/15 CUONG AGUILAR MD Jan 22, 2019 09:49
--- NOTE | 2019-01-22 09:55 | PDOC3 ---
Discharge Summary Visit Information Date of Admission: Jan 21, 2019 Date of Discharge: Jan 22, 2019 Admitting Diagnosis: accel htn Final Diagnosis Acute CHF exacerbation, acute diastolic CHF Hypertensive urgency History of coronary artery disease status post CABG Seasonal allergies obesity, BMI 34 fungal skin infection new shingles, to back Problems Medical Problems: (1) Dyspnea Status: Acute (2) Elevated brain natriuretic peptide (BNP) level Status: Acute (3) Hypertension Status: Acute (4) Hypoxia Status: Acute Brief Hospital Course Allergies Allergies Coded Allergies Type Severity Reaction Last Updated Verified Penicillins Allergy Intermediate 01/22/19 Yes cefaclor Allergy Intermediate 01/22/19 Yes codeine Allergy Intermediate 01/22/19 Yes demeclocycline Allergy Intermediate 01/22/19 Yes erythromycin base Allergy Intermediate 01/22/19 Yes meperidine Allergy Intermediate 01/22/19 Yes methylphenidate Allergy Intermediate 01/22/19 Yes nystatin Allergy Intermediate 01/22/19 Yes pentazocine Allergy Intermediate 01/22/19 Yes propoxyphene Allergy Intermediate 01/22/19 Yes pseudoephedrine Allergy Intermediate 01/22/19 Yes triamcinolone Allergy Intermediate 01/22/19 Yes triprolidine Allergy Intermediate 01/22/19 Yes Vital Signs Vital Signs Date Time Temp Pulse Resp B/P (MAP) Pulse Ox O2 Delivery O2 Flow Rate FiO2 01/22/19 07:53 98.6 68 18 161/63 (95) 96 Nasal Cannula 2.0 98.6 Lab Results Laboratory Tests Test 01/20/19 18:45 01/21/19 02:20 White Blood Count 4.8 x10^3/uL (4.0-11.0) Red Blood Count 4.14 x10^6/uL (3.50-5.40) Hemoglobin 12.6 g/dL (12.0-15.5) Hematocrit 37.8 % (36.0-47.0) Mean Corpuscular Volume 91 fL (79-100) Mean Corpuscular Hemoglobin 30 pg (25-35) Mean Corpuscular Hemoglobin Concent 33 g/dL (31-37) Red Cell Distribution Width 14.3 % (11.5-14.5) Platelet Count 220 x10^3/uL (140-400) Neutrophils (%) (Auto) 75 % (31-73) Lymphocytes (%) (Auto) 17 % (24-48) Monocytes (%) (Auto) 5 % (0-9) Eosinophils (%) (Auto) 2 % (0-3) Basophils (%) (Auto) 1 % (0-3) Neutrophils # (Auto) 3.6 x10^3uL (1.8-7.7) Lymphocytes # (Auto) 0.8 x10^3/uL (1.0-4.8) Monocytes # (Auto) 0.2 x10^3/uL (0.0-1.1) Eosinophils # (Auto) 0.1 x10^3/uL (0.0-0.7) Basophils # (Auto) 0.0 x10^3/uL (0.0-0.2) Sodium Level 143 mmol/L (136-145) Potassium Level 3.5 mmol/L (3.5-5.1) Chloride Level 104 mmol/L (98-107) Carbon Dioxide Level 33 mmol/L (21-32) Anion Gap 6 (6-14) Blood Urea Nitrogen 10 mg/dL (7-20) Creatinine 0.8 mg/dL (0.6-1.0) Estimated GFR (Cockcroft-Gault) 70.5 BUN/Creatinine Ratio 13 (6-20) Glucose Level 103 mg/dL (70-99) Calcium Level 8.8 mg/dL (8.5-10.1) Total Bilirubin 0.7 mg/dL (0.2-1.0) Aspartate Amino Transf (AST/SGOT) 16 U/L (15-37) Alanine Aminotransferase (ALT/SGPT) 11 U/L (14-59) Alkaline Phosphatase 67 U/L (46-116) Troponin I Quantitative 0.024 ng/mL (0.000-0.055) < 0.017 ng/mL (0.000-0.055) CB-Qhi-F-Type Natriuretic Peptide 2323 pg/mL (0-124) Total Protein 7.1 g/dL (6.4-8.2) Albumin 3.2 g/dL (3.4-5.0) Albumin/Globulin Ratio 0.8 (1.0-1.7) Brief Hospital Course Ms. Tavarez is a 73 old female with htn, poor control, admit for acute dyspnea , CHF, she had taken sudafed for allergy symtpoms, she has been to waste collector , he rec. OTC meds, like claritin, she took sudafed and had accel htn. also new skin rash to groin that looked fungal new itchy rash to back - shngles, start acyclovir, rec. derm f/u, she appears to have rash to scalp where she dyes her own hair, mult skin issues, excema to scalp, some hypoxia, improved at DC some weakness, will send home health f/u DR. Lopes this week, Discharge Information Condition at Discharge: Improved Follow Up: Weeks Disposition/Orders: D/C to Home w/ HH Scheduled Acyclovir (Acyclovir) 800 Mg Tablet, 1 TAB PO 5XDAY for shingles, #35 Prescribed by: CUONG AGUILAR on 01/22/19947 Amlodipine Besylate (Amlodipine Besylate) 5 Mg Tablet, 5 MG PO DAILY for hypertension, #30 Ref 2 Prescribed by: CUONG AGUILAR on 01/22/19947 Lisinopril (Lisinopril) 40 Mg Tablet, 40 MG PO DAILY for 60 Days, #60 Prescribed by: IRMA HOOK on 04/22/18 1148 Last Action: Continued on 01/21/19745 by BOLA SCHAEFER MD Nystatin (Nystop) 60 Gm Powder, 1 ASUNCION TP BID for skin redness for 30 Days Prescribed by: CUONG AGUILAR on 01/22/19947 Pantoprazole Sodium (Protonix) [address], 40 MG PO DAILY for GERD, ( Reported) Entered as Reported by: CHRISTOPHER MÁRQUEZ on 01/21/19429 Last Action: Converted on 01/21/19745 by BOLA SCHAEFER MD Scheduled PRN Aspirin/Acetaminophen/Caffeine (Excedrin Migraine Geltab) 1 Each Tablet, 1 EACH PO PRN DAILY PRN for HEADACHE, (Reported) Entered as Reported by: CHRISTOPHER MÁRQUEZ on 01/21/19429 Last Action: Continued on 01/21/19745 by BOLA SCHAEFER MD Discontinued Medications Diphenhydramine Hcl (Allergy) 25 Mg Tablet, Unknown Dose PO for ALLERGIES, ( Reported) Entered as Reported by: RHONDA OBRIEN on 06/28/15 1632 Last Action: Discontinued on 01/21/19430 by BOUPHA HER Pseudoephedrine Hcl (Sudafed 12-Hour) 120 Mg Tablet.er, 120 MG PO PRN PRN for ALLERGIES, (Reported) Entered as Reported by: CHRISTOPHER MÁRQUEZ on 01/21/19429 Last Action: HELD on 01/21/19745 by BOLA SCHAEFER MD Patient Instructions Patient Instructions > 45 min and face to face time, > 25 min CUONG AGUILAR MD Jan 22, 2019 09:55
--- NOTE | 2019-01-22 10:36 | NUR ---
SW consulted for HH. Spoke with pt at bedside. Pt lives home with spouse and is agreeable with [facility]. Francisc[facility] from [facility] will speak with pt regarding HH services. Orders faxed to [facility]. Pt reported her is able to pick her up. RN notified.
[2019-01-22 11:00] VITALS: BP 146/69
--- NOTE | 2019-01-22 13:35 | NUR ---
Discharge Note: JERRELL WALKER ANTIOCH Discharge instructions and discharge home medications reviewed with Patient and a copy given. All questions have been answered and understanding verbalized. The following instructions and handouts were given: SOA Discontinued lines and drains: Peripheral IV intact. Patient discharged to Home w/services with Family Member via Wheelchair walked off unit by AMOR
== END 2019-01-22 13:36 | disposition home health service (06) | DRG 190 ==
LOC: ER 17:59 → 5 NORTH 20:45 → OBSVTOIN 21:02
PROVIDERS: ADMIT Internal Medicine; ATTEND Internal Medicine
DX: J44.1 Chronic obstructive pulmonary disease with (acute) exacerbation (principal); I50.33 Acute on chronic diastolic (congestive) heart failure; I16.0 Hypertensive urgency; I11.0 Hypertensive heart disease with heart failure; B36.9 Superficial mycosis, unspecified; E66.9 Obesity, unspecified; F03.90 Unspecified dementia, unspecified severity, without behavioral disturbance, psychotic disturbance, mood disturbance, and anxiety; I25.10 Atherosclerotic heart disease of native coronary artery without angina pectoris; K21.9 Gastro-esophageal reflux disease without esophagitis; F32.9 Major depressive disorder, single episode, unspecified; J30.2 Other seasonal allergic rhinitis; M06.9 Rheumatoid arthritis, unspecified; F41.9 Anxiety disorder, unspecified; R09.02 Hypoxemia; Z68.34 Body mass index [BMI] 34.0-34.9, adult; Z82.49 Family history of ischemic heart disease and other diseases of the circulatory system; Z95.1 Presence of aortocoronary bypass graft; Z90.710 Acquired absence of both cervix and uterus; Z99.81 Dependence on supplemental oxygen; M19.90 Unspecified osteoarthritis, unspecified site; Z88.6 Allergy status to analgesic agent; Z88.4 Allergy status to anesthetic agent; Z88.0 Allergy status to penicillin; Z88.2 Allergy status to sulfonamides; Z88.8 Allergy status to other drugs, medicaments and biological substances; B02.9 Zoster without complications
CPT/HCPCS: 36415; 71045; 80053; 83880; 84484; 85025; 93005; 96374; 96375; G0379; J1940; J3490; 99285-25

== ENCOUNTER 2019-01-28 03:24 | Inpatient (IN) | payer MEDICARE ==
[~2019-01-28] VITALS: Ht 195.6 cm; Wt 84.8 kg
[~2019-01-28 03:24] MED LIST changes: +ACYC800T PO; +AMLO5TAB10 PO; +ASPI1TAB21 PO; +NYST60PO TP; +PANT40GR PO; +PSEU120T9 PO
[2019-01-28] MEDS ORDERED: LABETALOL 20 MG/4 ML DISP.SYRIN. IVP ONE (04:15)
[2019-01-28] MEDS ORDERED: NITROGLYCERIN OINT 1 GM PACKET. TP ONE (04:15)
[2019-01-28 04:22] LABS: BASO % 1 % (0-3); EOS # 0.2 x10^3/uL (0.0-0.7); EOS % 3 % (0-3); HEMATOCRIT 39.3 % (36.0-47.0); HEMOGLOBIN 13.4 g/dL (12.0-15.5); LYMPH # 0.8 x10^3/uL (1.0-4.8); LYMPH % 15 % (24-48); MEAN CORPUSCULAR HEMOGLOBIN 31 pg (25-35); MEAN CORPUSCULAR HGB CONC 34 g/dL (31-37); MEAN CORPUSCULAR VOLUME 91 fL (79-100); MONO # 0.3 x10^3/uL (0.0-1.1); MONO % 5 % (0-9); NEUT # 4.3 x10^3uL (1.8-7.7); NEUT % 76 % (31-73); PLATELET COUNT 207 x10^3/uL (140-400); RED BLOOD COUNT 4.33 x10^6/uL (3.50-5.40); RED CELL DISTRIBUTION WIDTH 14.2 % (11.5-14.5); WHITE BLOOD COUNT 5.6 x10^3/uL (4.0-11.0)
[2019-01-28] MEDS ORDERED: amLODIPine BESYLATE 5 MG TABLET PO ONE (04:30)
[2019-01-28] MEDS ORDERED: FUROSEMIDE 40 MG/4 ML VIAL. IVP ONE (04:30)
[2019-01-28 04:31] LABS: PROTHROMBIN TIME PATIENT 12.3 SEC (11.7-14.0)
[2019-01-28 04:34] LABS: CALCIUM 9.6 mg/dL (8.5-10.1); CREATININE 0.7 mg/dL (0.6-1.0); GFR 82.3; POTASSIUM 3.6 mmol/L (3.5-5.1)
[2019-01-28 04:41] LABS: ALBUMIN 3.6 g/dL (3.4-5.0); ALBUMIN/GLOBULIN RATIO 0.9 (1.0-1.7); TOTAL BILIRUBIN 0.8 mg/dL (0.2-1.0); TOTAL PROTEIN 7.8 g/dL (6.4-8.2)
--- NOTE | 2019-01-28 04:45 | PHYS DOC ---
Past Medical History Past Medical History: CAD, COPD, GERD, Hypertension, Other Additional Past Medical Histor: seasoal allergies, eczema Past Surgical History: Coronary Bypass Surgery, Hysterectomy, Other Additional Past Surgical Histo: right upper lobectomy, dilation and curretage Alcohol Use: None Drug Use: None Adult General Chief Complaint Chief Complaint: Congestion HPI HPI Patient is a 73 year old female w/ a history of CAD, CABG, HTN, COPD, and CHF, who presents with a home blood pressure reading of 198/101. Pt was seen recently in ER less than a week ago for HTN and pleural effusions. She was given 2 extra antihypertensives to fill (she was only on Lisinopril) last visit - amlodipine and hydrochlorothiazide - but pt did not fill these. SHE HAS been mildly sob with exertion. She adamantly denies Chest pain. She denies n/v, diarrhea, constipation, RODRIGUEZ's, joint pain, diaphoresis, or back pain. She admits to nasal congestion and cough. She states her average home BP readings are around 150/70. She admits to taking Sudafed chronically, and stopped taking it her last visit here because the attending doctor informed her of its hypertensive properties. Review of Systems Review of Systems Constitutional: Denies fever or chills Eyes: Denies change in visual acuity, redness, or eye pain HENT: Admits nasal congestion. Respiratory: Admits cough. Denies shortness of breath. Cardiovascular: No additional information not addressed in HPI GI: Denies abdominal pain, nausea, vomiting, bloody stools or diarrhea. : Denies dysuria or hematuria Musculoskeletal: Denies back pain or joint pain Integument: Admits rash or skin lesions. States it is psoriasis Neurologic: Denies headache, focal weakness or sensory changes Endocrine: Denies polyuria or polydipsia All other systems were reviewed and found to be within normal limits, except as documented in this note. Current Medications Current Medications Current Medications Medications (Trade) Dose Ordered Sig/Kaity Start Time Stop Time Status Last Admin Dose Admin Amlodipine Besylate (Norvasc) 10 mg 1X ONCE 01/28/19 04:30 01/28/19 04:31 DC 01/28/19 04:22 10 MG Furosemide (Lasix) 40 mg 1X ONCE 01/28/19 04:30 01/28/19 04:31 DC 01/28/19 04:23 40 MG Labetalol HCl (Normodyne Iv Push) 20 mg PRN Q2HRS PRN 01/28/19 05:30 Nitroglycerin (Nitro-Bid Oint) 1 inch 1X ONCE 01/28/19 04:15 01/28/19 04:15 DC Allergies Allergies Allergies Coded Allergies Type Severity Reaction Last Updated Verified Penicillins Allergy Intermediate 01/22/19 Yes cefaclor Allergy Intermediate 01/22/19 Yes codeine Allergy Intermediate 01/22/19 Yes demeclocycline Allergy Intermediate 01/22/19 Yes erythromycin base Allergy Intermediate 01/22/19 Yes meperidine Allergy Intermediate 01/22/19 Yes methylphenidate Allergy Intermediate 01/22/19 Yes nystatin Allergy Intermediate 01/22/19 Yes pentazocine Allergy Intermediate 01/22/19 Yes propoxyphene Allergy Intermediate 01/22/19 Yes pseudoephedrine Allergy Intermediate 01/22/19 Yes triamcinolone Allergy Intermediate 01/22/19 Yes triprolidine Allergy Intermediate 01/22/19 Yes Physical Exam Physical Exam Constitutional: Pt is in no acute distress. HENT: Normocephalic, atraumatic, bilateral external ears normal, oropharynx moist, no oral exudates, nose normal. Redness and irritation noted on the head - Dyed hair could be cause of the irritation. Eyes: PERRLA, EOMI, conjunctiva normal, no discharge. Cardiovascular:Heart rate regular rhythm, no murmur. Distant heart sounds. Lungs & Thorax: Bilateral breath sounds clear to auscultation. Distant breath sounds, bilaterally. Abdomen: Bowel sounds normal, soft, no tenderness, no masses, no pulsatile masses. Skin: Warm, dry, no erythema, no rash. Multiple small, plaque like lesions noted on b/l LE's and thorax. Neurologic: Alert and oriented X 3, normal motor function, normal sensory function, no focal deficits noted. Current Patient Data Vital Signs Vital Signs Date Time Temp Pulse Resp B/P (MAP) Pulse Ox O2 Delivery O2 Flow Rate FiO2 01/28/19 04:22 78 224/100 01/28/19 03:26 98.1 18 98 Room Air 98.1 Lab Values Laboratory Tests Test 01/28/19 04:08 White Blood Count 5.6 x10^3/uL (4.0-11.0) Red Blood Count 4.33 x10^6/uL (3.50-5.40) Hemoglobin 13.4 g/dL (12.0-15.5) Hematocrit 39.3 % (36.0-47.0) Mean Corpuscular Volume 91 fL (79-100) Mean Corpuscular Hemoglobin 31 pg (25-35) Mean Corpuscular Hemoglobin Concent 34 g/dL (31-37) Red Cell Distribution Width 14.2 % (11.5-14.5) Platelet Count 207 x10^3/uL (140-400) Neutrophils (%) (Auto) 76 % (31-73) H Lymphocytes (%) (Auto) 15 % (24-48) L Monocytes (%) (Auto) 5 % (0-9) Eosinophils (%) (Auto) 3 % (0-3) Basophils (%) (Auto) 1 % (0-3) Neutrophils # (Auto) 4.3 x10^3uL (1.8-7.7) Lymphocytes # (Auto) 0.8 x10^3/uL (1.0-4.8) L Monocytes # (Auto) 0.3 x10^3/uL (0.0-1.1) Eosinophils # (Auto) 0.2 x10^3/uL (0.0-0.7) Basophils # (Auto) 0.0 x10^3/uL (0.0-0.2) Prothrombin Time 12.3 SEC (11.7-14.0) Prothrombin Time INR 0.9 (0.8-1.1) Sodium Level 144 mmol/L (136-145) Potassium Level 3.6 mmol/L (3.5-5.1) Chloride Level 104 mmol/L (98-107) Carbon Dioxide Level 32 mmol/L (21-32) Anion Gap 8 (6-14) Blood Urea Nitrogen 7 mg/dL (7-20) Creatinine 0.7 mg/dL (0.6-1.0) Estimated GFR (Cockcroft-Gault) 82.3 BUN/Creatinine Ratio 10 (6-20) Glucose Level 101 mg/dL (70-99) H Calcium Level 9.6 mg/dL (8.5-10.1) Magnesium Level 2.0 mg/dL (1.8-2.4) Total Bilirubin 0.8 mg/dL (0.2-1.0) Aspartate Amino Transferase (AST) 29 U/L (15-37) Alanine Aminotransferase (ALT) 19 U/L (14-59) Alkaline Phosphatase 67 U/L (46-116) Total Protein 7.8 g/dL (6.4-8.2) Albumin 3.6 g/dL (3.4-5.0) Albumin/Globulin Ratio 0.9 (1.0-1.7) L Laboratory Tests 01/28/19 04:08 Laboratory Tests 01/28/19 04:08 EKG EKG nsr rate 74 no acute ischemic changes noted, no stemi. [] Radiology/Procedures Radiology/Procedures [] Impressions: cxr there is no definite pna, possible mild pulm vasc congestion. Course & Med Decision Making Course & Med Decision Making Pt is a 73 yo female w/ a history of uncontrolled HTN, CAD, CABG, CHF, and COPD. Home reading is what caused her to come to ER and she adamantly denies any associated symptoms other than congestion and cough (which she notes is chronic). In ER her BP reading was 224/100. improved somewhat after above tx. Patient when ambulating around the emergency room desatted down into the mid to high 80s also was saturating around 88% on room air at rest during much of the ER visit. I suspect that she is having a component of some diastolic dysfunction heart failure related to her hypertension she has not been able to fill her oral agents for an unclear reason notes insurance issues. Patient be admitted to the service of Dr. alexis for BP monitoring I ordered some Lasix as well and supplemental oxygen as needed. trop pending at this time Dragon Disclaimer Dragon Disclaimer This electronic medical record was generated, in whole or in part, using a voice recognition dictation system. Departure Departure Impression: Primary Impression: Hypertensive urgency Disposition: ADMITTED INPATIENT Admitting Physician: Other Condition: STABLE Referrals: RAJEEV DESHPANDE MD (PCP) HARPAL SINHA MD Jan 28, 2019 04:45
[2019-01-28] MEDS ORDERED: LABETALOL 20 MG/4 ML DISP.SYRIN. IVP PRN (05:30)
--- NOTE | 2019-01-28 06:28 | EKG ---
[facility] [address] [place] [address] Test Date: 2019-01-28 Test Time: 04:51:19 Pat Name: JERRELL WALKER Department: Room: 244 1 Gender: F Accounting Machine Operator: : [id number] Requested By: HARPAL SINHA Order Number: [id number] Reading MD: Eros Sandoval MD Measurements Intervals [place] Rate: 74 P: 34 WV: 168 QRS: -26 QRSD: 80 T: 59 QT: 440 QTc: 489 Interpretive Statements SINUS RHYTHM Electronically Signed On 01-31-2019 16:06:02 CDT by Eros Sandoval MD
[2019-01-28 06:39] VITALS: BP 177/79
[2019-01-28] MEDS ORDERED: TRIA15OI TP (07:19)
[2019-01-28] MEDS ORDERED: OMEG1CAP6 PO (07:19)
[2019-01-28] MEDS ORDERED: AMLO10TA8 PO (07:19)
[2019-01-28] MEDS ORDERED: HYDR12.575 PO (07:19)
[2019-01-28] MEDS ORDERED: [UNRECOGNIZED DRUG - CODE] PO (07:32)
[2019-01-28] MEDS ORDERED: IBUPROFEN 200 MG TABLET. PO PRN (07:45)
--- NOTE | 2019-01-28 08:10 | RAD ---
Indication:weakness TECHNIQUE:Portable AP chest X-ray COMPARISON:01/20/2019 FINDINGS: Heart is normal in size. Lungs are clear. No pneumothorax or pleural effusion. Visualized bony thorax is within normal limits. IMPRESSION: No acute pulmonary process. Electronically signed by: Christian Crouch DO (01/28/2019 8:03 AM) [facility]
[2019-01-28 08:43] LABS: CHOLESTEROL/HDL RATIO 4.1
[2019-01-28] MEDS ORDERED: hydroCHLOROthiazide 12.5 MG CAPSULE PO SCH (09:00)
[2019-01-28] MEDS ORDERED: NYSTATIN TOPICAL POWDER 15GM BOTTLE. TP SCH (09:00)
[2019-01-28] MEDS ORDERED: LISINOPRIL 20 MG TABLET PO SCH (09:00)
[2019-01-28] MEDS ORDERED: amLODIPine BESYLATE 10 MG TABLET PO SCH (09:00)
[2019-01-28] MEDS ORDERED: OMEGA-3 FATTY ACIDS/FISH OIL 1,000 MG CAPSULE. PO SCH (09:00)
[2019-01-28] MEDS ORDERED: PANTOPRAZOLE 40 MG TABLET.DR. PO SCH (09:00)
--- NOTE | 2019-01-28 09:21 | PDOC2 ---
CARDIAC CONSULT DATE OF CONSULT Date of Consult DATE: 01/28/19 TIME: 09:08 REASON FOR CONSULT Reason for Consult: Hypertension REFERRING PHYSICIAN Referring Physician: Konstantin SOURCE Source: Chart review, Patient HISTORY OF PRESENT ILLNESS HISTORY OF PRESENT ILLNESS This is a pleasant 73 yo female admitted for complains of high BP. Reports that yesterday she felt a little off. She had a little RODRIGUEZ, dizziness and sometimes felt that her heart was beating hard. She then checked her BP and her SBP was 198 which prompted her to come in to ED. and was noted with BP at 224/100. She was just discharged few days ago and unfortunately she has only been taking her lisinopril and her new med norvasc and HCTZ were never filled citing that constantino laylyle told her that it could not be filled by her for unknown reason. She does have allergic rhinitis which prompted her to use sudafed all the time but none has been taken since advised not from her previous admission. No SOA, leg swelling and no chest pain or palpiations as well. No OG or no exertional CP. PAST MEDICAL HISTORY Past Medical History Cardiovascular: HTN Pulmonary: No pertinent hx CENTRAL NERVOUS SYSTEM: Dementia GI: GERD Heme/Onc: No pertinent hx Hepatobiliary: No pertinent hx Psych: Anxiety, Depression Musculoskeletal: Osteoarthritis Rheumatologic: No pertinent hx Infectious disease: No pertinent hx ENT: No pertinent hx Renal/: No pertinent hx Endocrine: No pertinent hx Dermatology: No pertinent hx PAST SURGICAL HISTORY Past Surgical History: Hysterectomy FAMILY HISTORY Family History: Hypertension SOCIAL HISTORY Smoke: No ALCOHOL: none Drugs: None Lives: with Family CURRENT MEDICATIONS CURRENT MEDICATIONS Current Medications Medications (Trade) Dose Ordered Sig/Kaity Route PRN Reason Start Time Stop Time Status Last Admin Dose Admin Furosemide (Lasix) 40 mg 1X ONCE IVP 01/28/19 04:30 01/28/19 04:31 DC 01/28/19 04:23 Amlodipine Besylate (Norvasc) 10 mg 1X ONCE PO 01/28/19 04:30 01/28/19 04:31 DC 01/28/19 04:22 Ibuprofen (Motrin) 200 mg PRN Q6HRS PRN PO INFLAMMATION 01/28/19 07:45 01/28/19 07:43 Amlodipine Besylate (Norvasc) 10 mg DAILY PO 01/28/19 09:00 01/28/19 08:55 Hydrochlorothiazide (Microzide) 12.5 mg DAILY PO 01/28/19 09:00 01/28/19 08:55 Lisinopril (Prinivil) 40 mg DAILY PO 01/28/19 09:00 01/28/19 08:55 Nystatin (Nystop) 1 yanet BID TP 01/28/19 09:00 01/28/19 08:56 Fish Oil (Fish Oil) 1,000 mg DAILY PO 01/28/19 09:00 01/28/19 08:54 Pantoprazole Sodium (Protonix) 40 mg DAILYAC PO 01/28/19 09:00 01/28/19 08:54 ALLERGIES ALLERGIES: Coded Allergies: Penicillins (Verified Allergy, Intermediate, 01/22/19) cefaclor (Verified Allergy, Intermediate, 01/22/19) codeine (Verified Allergy, Intermediate, 01/22/19) demeclocycline (Verified Allergy, Intermediate, 01/22/19) erythromycin base (Verified Allergy, Intermediate, 01/22/19) meperidine (Verified Allergy, Intermediate, 01/22/19) methylphenidate (Verified Allergy, Intermediate, 01/22/19) nystatin (Verified Allergy, Intermediate, 01/28/19) Has tolerated nystatin powder pentazocine (Verified Allergy, Intermediate, 01/22/19) propoxyphene (Verified Allergy, Intermediate, 01/22/19) pseudoephedrine (Verified Allergy, Intermediate, 01/22/19) triamcinolone (Verified Allergy, Intermediate, 01/22/19) triprolidine (Verified Allergy, Intermediate, 01/22/19) ROS Review of System 14 point ROS evaluated with pertinent positives noted per HPI PHYSICAL EXAM General: Alert, Oriented X3, Cooperative, No acute distress HEENT: Atraumatic, Mucous membr. moist/pink Lungs: Clear to auscultation, Normal air movement Heart: Regular rate (SR), Normal S1, Normal S2, Other (2/6 systolic murmur to LLS border) Abdomen: Soft, No tenderness Extremities: No cyanosis, No edema Skin: No breakdown, No significant lesion Neuro: Normal speech, Sensation intact Psych/Mental Status: Mental status NL, Mood NL MUSCULOSKELETAL: Osteoarthritic changes both hands VITALS VITALS Vital Signs Date Time Temp Pulse Resp B/P (MAP) Pulse Ox O2 Delivery O2 Flow Rate FiO2 01/28/19 08:55 80 01/28/19 06:39 98.3 18 177/79 (111) 97 Nasal Cannula 2.0 98.3 LABS Lab: Laboratory Tests Test 01/28/19 04:08 White Blood Count 5.6 x10^3/uL (4.0-11.0) Red Blood Count 4.33 x10^6/uL (3.50-5.40) Hemoglobin 13.4 g/dL (12.0-15.5) Hematocrit 39.3 % (36.0-47.0) Mean Corpuscular Volume 91 fL (79-100) Mean Corpuscular Hemoglobin 31 pg (25-35) Mean Corpuscular Hemoglobin Concent 34 g/dL (31-37) Red Cell Distribution Width 14.2 % (11.5-14.5) Platelet Count 207 x10^3/uL (140-400) Neutrophils (%) (Auto) 76 % (31-73) Lymphocytes (%) (Auto) 15 % (24-48) Monocytes (%) (Auto) 5 % (0-9) Eosinophils (%) (Auto) 3 % (0-3) Basophils (%) (Auto) 1 % (0-3) Neutrophils # (Auto) 4.3 x10^3uL (1.8-7.7) Lymphocytes # (Auto) 0.8 x10^3/uL (1.0-4.8) Monocytes # (Auto) 0.3 x10^3/uL (0.0-1.1) Eosinophils # (Auto) 0.2 x10^3/uL (0.0-0.7) Basophils # (Auto) 0.0 x10^3/uL (0.0-0.2) Prothrombin Time 12.3 SEC (11.7-14.0) Prothromb Time International Ratio 0.9 (0.8-1.1) Sodium Level 144 mmol/L (136-145) Potassium Level 3.6 mmol/L (3.5-5.1) Chloride Level 104 mmol/L (98-107) Carbon Dioxide Level 32 mmol/L (21-32) Anion Gap 8 (6-14) Blood Urea Nitrogen 7 mg/dL (7-20) Creatinine 0.7 mg/dL (0.6-1.0) Estimated GFR (Cockcroft-Gault) 82.3 BUN/Creatinine Ratio 10 (6-20) Glucose Level 101 mg/dL (70-99) Calcium Level 9.6 mg/dL (8.5-10.1) Magnesium Level 2.0 mg/dL (1.8-2.4) Total Bilirubin 0.8 mg/dL (0.2-1.0) Aspartate Amino Transf (AST/SGOT) 29 U/L (15-37) Alanine Aminotransferase (ALT/SGPT) 19 U/L (14-59) Alkaline Phosphatase 67 U/L (46-116) Troponin I Quantitative < 0.017 ng/mL (0.000-0.055) DH-Auz-Z-Type Natriuretic Peptide 1737 pg/mL (0-124) Total Protein 7.8 g/dL (6.4-8.2) Albumin 3.6 g/dL (3.4-5.0) Albumin/Globulin Ratio 0.9 (1.0-1.7) Triglycerides Level 141 mg/dL (0-150) Cholesterol Level 198 mg/dL (0-200) LDL Cholesterol, Calculated 122 mg/dL (0-100) VLDL Cholesterol, Calculated 28 mg/dL (0-40) Non-HDL Cholesterol Calculated 150 mg/dL (0-129) HDL Cholesterol 48 mg/dL (40-60) Cholesterol/HDL Ratio 4.1 Thyroid Stimulating Hormone (TSH) 1.762 uIU/mL (0.358-3.74) ASSESSMENT/PLAN ASSESSMENT/PLAN 1. Accelerated HTN: due to inadequate BP regimen 2. Acute diastolic CHF: induced by above. Compesnated 3. Allergic rhinitis: may benefit from flonase. 4. Hx of asymptomatic SB: no bradycardia so far per tele Recommendations 1. Lasix received in ED 2. Restart home lisinopril and will restart norvasc and HCTZ. Continue with HBPM 3. Discussed with staff and will clarify issues with filling prescription. 4. Emphasized compliance and will need to discussed with spouse regarding treatement given her dementia issues. 5. Dietian consult for DASH diet. 6. TTE today. Check TSH and lipids. BERNADETTE DOMINIQUE APRN Jan 28, 2019 09:21
[2019-01-28] MEDS ORDERED: POTASSIUM CHLORIDE 20 MEQ TABLET.ER. PO ONE (09:30)
[2019-01-28 10:40] VITALS: BP 155/62
--- NOTE | 2019-01-28 11:55 | NUR ---
SS following for discharge planning. SS reviewed pt chart. Pt is from home with spouse and is currently on room air. No discharge needs noted at this time. SS will continue to follow for pending discharge needs.
--- NOTE | 2019-01-28 14:27 | CARD ---
MR#: [id number] Date of Study: 01/28/2019 Ordering Physician: BERNADETTE DOMINIQUE, Referring Physician: BOLA SCHAEFER Tech: Liudmila Mckeon APPROVED REPORT EXAM: Two-dimensional and M-mode echocardiogram with Doppler and color Doppler. Other Information Quality : AverageHR: 86bpm INDICATION Congestive Heart Failure RISK FACTORS Hypertension 2D DIMENSIONS RVDd3.3 (2.9-3.5cm)Left Atrium(2D)3.9 (1.6-4.0cm) IVSd1.2 (0.7-1.1cm)Aortic Root(2D)3.2 (2.0-3.7cm) LVDd4.5 (3.9-5.9cm)LVOT Diameter2.2 (1.8-2.4cm) PWd1.1 (0.7-1.1cm)LVDs3.0 (2.5-4.0cm) FS (%) 33.1 %SV57.7 ml LVEF(%)61.7 (>50%) Aortic Valve AoV Peak Manoj.142.2cm/sAoV VTI22.9cm AO Peak GR.8.1mmHgLVOT Peak Manoj.99.2cm/s LVOT VTI 17.50cmAO Mean GR.5mmHg CAILIN (VMAX)1.75fi6XEJ (VTI)2.82cm2 Mitral Valve MV E Syrpcjxw55.5cm/sMV DECEL [id number] MV A Ytgvleoq90.5cm/sMV CJE72rg E/A Ratio0.8MVA (PHT)2.68cm2 TDI E/Lateral E'8.3E/Medial E'10.6 Pulmonary Valve PV Peak Gyqrzvle974.0cm/sPV Peak Grad.7mmHg Pulmonary Vein S1 Txfqataw28.3cm/sD2 Xnmcrkak42.8cm/s PVa [id number] LEFT VENTRICLE The left ventricle is normal size. There is mild concentric left ventricular hypertrophy. The left ve ntricular systolic function is normal and the ejection fraction is within normal range. The Ejection Fraction is >55%. There is normal LV segmental wall motion. Transmitral Doppler flow pattern is Grade I-abnormal relaxation pattern. RIGHT VENTRICLE The right ventricle is borderline dilated. There is normal right ventricular wall thickness. The righ t ventricular systolic function is normal. ATRIA The left atrium size is normal. The right atrium size is normal. The interatrial septum is intact wit h no evidence for an atrial septal defect or patent foramen ovale as noted on 2-D or Doppler imaging. AORTIC VALVE The aortic valve is normal in structure and function. Doppler and Color Flow revealed no significant aortic regurgitation. There is no significant aortic valvular stenosis. MITRAL VALVE The mitral valve is normal in structure and function. There is no evidence of mitral valve prolapse. There is no mitral valve stenosis. Doppler and Color Flow revealed no mitral valve regurgitation note d. TRICUSPID VALVE The tricuspid valve is normal in structure and function. Doppler and Color Flow revealed no tricuspid valve regurgitation noted. There is no tricuspid valve stenosis. PULMONIC VALVE The pulmonic valve is not well visualized. Doppler and Color Flow revealed no pulmonic valvular regur gitation. GREAT VESSELS The aortic root is normal in size. The IVC is normal in size and collapses >50% with inspiration. PERICARDIAL EFFUSION There is no evidence of significant pericardial effusion. Critical Notification Critical Value: No <Conclusion> The left ventricular systolic function is normal and the ejection fraction is within normal range. Th e Ejection Fraction is >55%. There is normal LV segmental wall motion. Signed by : Eros Sandoval, Electronically Approved : 01/28/2019 14:26:30
--- NOTE | 2019-01-28 14:44 | NUR ---
Nursing/prescriptions: Patient did not understand why her prescription could not be refilled. [facility]: I called and spoke with the pharmacist at [facility] [phone]. Pharmacist reported prescription for Amlodipine was dropped off on 01/23/19 and was picked up on 01/24/19. They also explained insurance would not approve pickup of Lisinopril or hydrochlorothiazide because it was sent to [facility] and insurance would not pay for these prescriptions again until April. [facility]: I then contacted [facility] [phone]. Which reported prescription for lisinopril and hydrochlorothiazide were filled/mailed out on 01/24/19 #90 pills were issued. Unable to verify if patient has received medications in the mail. cardiology notified of these finding. At this time patient is unable to locate new prescriptions that have been filled.
[2019-01-28 14:45] VITALS: BP 135/6
[2019-01-28 15:05] VITALS: BP 134/63
--- NOTE | 2019-01-28 16:10 | PDOC1 ---
History and Physical Date of Admission Date of Admission 01/28/2019 Identification/Chief Complaint Chief Complaint My blood pressure was high Source Source: Chart review, Patient History of Present Illness History of Present Illness Ms. Tavarez is a 73 old female with htn, poor control, admit for uncontrolled hypertension. The patient on her last hospital stay was admitted for acute dyspnea, CHF, she had taken sudafed for allergy symtpoms, she has been to hospital coordinator, he rec. OTC meds, like claritin, she took sudafed and had accel htn. also new skin rash to groin that looked fungal new itchy rash to back which was thought to be shingles- shngles, she was started on acyclovir, rec. derm f/u, she appears to have rash to scalp where she dyes her own hair, mult skin issues, excema to scalp, This time she did not percent hypoxia and she has improved by the time of my evaluation. Patient's blood pressure seems better controlled she denies headache blurred vision no changes in her medications were voiced no increase in salt intake either. The patient does not exhibit encephalopathy nor chest pain Past Medical History Cardiovascular: HTN Pulmonary: No pertinent hx CENTRAL NERVOUS SYSTEM: Dementia GI: GERD Heme/Onc: No pertinent hx Hepatobiliary: No pertinent hx Psych: Anxiety, Depression Rheumatologic: No pertinent hx Infectious disease: No pertinent hx Renal/: No pertinent hx Endocrine: No pertinent hx Past Surgical History Past Surgical History: Hysterectomy Family History Family History: Hypertension Social History Smoke: No ALCOHOL: none Drugs: None Current Medications Current Medications Current Medications Medications (Trade) Dose Ordered Sig/Kaity Start Time Stop Time Status Last Admin Dose Admin Amlodipine Besylate (Norvasc) 10 mg DAILY 01/28/19 09:00 01/28/19 08:55 10 MG Fish Oil (Fish Oil) 1,000 mg DAILY 01/28/19 09:00 01/28/19 08:54 1,000 MG Furosemide (Lasix) 40 mg 1X ONCE 01/28/19 04:30 01/28/19 04:31 DC 01/28/19 04:23 40 MG Hydrochlorothiazide (Microzide) 12.5 mg DAILY 01/28/19 09:00 01/28/19 08:55 12.5 MG Ibuprofen (Motrin) 200 mg PRN Q6HRS PRN 01/28/19 07:45 01/28/19 07:43 200 MG Labetalol HCl (Normodyne Iv Push) 20 mg PRN Q2HRS PRN 01/28/19 05:30 Lisinopril (Prinivil) 40 mg DAILY 01/28/19 09:00 01/28/19 08:55 40 MG Nitroglycerin (Nitro-Bid Oint) 1 inch 1X ONCE 01/28/19 04:15 01/28/19 04:15 DC Nystatin (Nystop) 1 yanet BID 01/28/19 09:00 01/28/19 08:56 1 YANET Pantoprazole Sodium (Protonix) 40 mg DAILYAC 01/28/19 09:00 01/28/19 08:54 40 MG Potassium Chloride (Klor-Con) 20 meq 1X ONCE 01/28/19 09:30 01/28/19 09:31 DC 01/28/19 09:55 20 MEQ Allergies Allergies Allergies Coded Allergies Type Severity Reaction Last Updated Verified Penicillins Allergy Intermediate 01/22/19 Yes cefaclor Allergy Intermediate 01/22/19 Yes codeine Allergy Intermediate 01/22/19 Yes demeclocycline Allergy Intermediate 01/22/19 Yes erythromycin base Allergy Intermediate 01/22/19 Yes meperidine Allergy Intermediate 01/22/19 Yes methylphenidate Allergy Intermediate 01/22/19 Yes nystatin Allergy Intermediate 01/28/19 Yes pentazocine Allergy Intermediate 01/22/19 Yes propoxyphene Allergy Intermediate 01/22/19 Yes pseudoephedrine Allergy Intermediate 01/22/19 Yes triamcinolone Allergy Intermediate 01/22/19 Yes triprolidine Allergy Intermediate 01/22/19 Yes ROS Review of System CONSTITUTIONAL: No fever or chills EYES: No recent changes SKIN: No rash or itching CARDIOVASCULAR: No chest pain, syncope, palpitations, or edema RESPIRATORY: No SOB or cough GASTROINTESTINAL: No nausea, vomiting or abdominal pain NEUROLOGICAL: No headaches or weakness ENDOCRINE: No cold or heat intolerance GENITOURINARY: No urgency or frequency of urination MUSCULOSKELETAL: No back pain or joint pain LYMPHATICS: No enlarged lymph nodes PSYCHIATRIC: No anxiety or depression Physical Exam Physical Exam GEN.: No apparent distress. Alert and oriented. HEENT: Head is normocephalic, atraumatic NECK: Supple. LUNGS: Clear to auscultation. HEART: RRR, S1, S2 present. Peripheral pulses intact ABDOMEN: Soft, nontender. Positive bowel sounds. EXTREMITIES: Without any cyanosis. NEUROLOGIC: Normal speech, normal tone PSYCHIATRIC: Normal affect, normal mood. SKIN: No ulcerations Vitals Vitals Vital Signs Date Time Temp Pulse Resp B/P (MAP) Pulse Ox O2 Delivery O2 Flow Rate FiO2 01/28/19 15:05 82 134/63 (86) 01/28/19 14:45 98.8 18 95 Room Air 98.8 01/28/19 06:39 2.0 Labs Labs Laboratory Tests Test 01/28/19 04:08 01/28/19 08:15 01/28/19 11:15 White Blood Count 5.6 x10^3/uL (4.0-11.0) Red Blood Count 4.33 x10^6/uL (3.50-5.40) Hemoglobin 13.4 g/dL (12.0-15.5) Hematocrit 39.3 % (36.0-47.0) Mean Corpuscular Volume 91 fL (79-100) Mean Corpuscular Hemoglobin 31 pg (25-35) Mean Corpuscular Hemoglobin Concent 34 g/dL (31-37) Red Cell Distribution Width 14.2 % (11.5-14.5) Platelet Count 207 x10^3/uL (140-400) Neutrophils (%) (Auto) 76 % (31-73) Lymphocytes (%) (Auto) 15 % (24-48) Monocytes (%) (Auto) 5 % (0-9) Eosinophils (%) (Auto) 3 % (0-3) Basophils (%) (Auto) 1 % (0-3) Neutrophils # (Auto) 4.3 x10^3uL (1.8-7.7) Lymphocytes # (Auto) 0.8 x10^3/uL (1.0-4.8) Monocytes # (Auto) 0.3 x10^3/uL (0.0-1.1) Eosinophils # (Auto) 0.2 x10^3/uL (0.0-0.7) Basophils # (Auto) 0.0 x10^3/uL (0.0-0.2) Prothrombin Time 12.3 SEC (11.7-14.0) Prothromb Time International Ratio 0.9 (0.8-1.1) Sodium Level 144 mmol/L (136-145) Potassium Level 3.6 mmol/L (3.5-5.1) Chloride Level 104 mmol/L (98-107) Carbon Dioxide Level 32 mmol/L (21-32) Anion Gap 8 (6-14) Blood Urea Nitrogen 7 mg/dL (7-20) Creatinine 0.7 mg/dL (0.6-1.0) Estimated GFR (Cockcroft-Gault) 82.3 BUN/Creatinine Ratio 10 (6-20) Glucose Level 101 mg/dL (70-99) Calcium Level 9.6 mg/dL (8.5-10.1) Magnesium Level 2.0 mg/dL (1.8-2.4) Total Bilirubin 0.8 mg/dL (0.2-1.0) Aspartate Amino Transf (AST/SGOT) 29 U/L (15-37) Alanine Aminotransferase (ALT/SGPT) 19 U/L (14-59) Alkaline Phosphatase 67 U/L (46-116) Troponin I Quantitative < 0.017 ng/mL (0.000-0.055) < 0.017 ng/mL (0.000-0.055) < 0.017 ng/mL (0.000-0.055) QJ-Ugj-T-Type Natriuretic Peptide 1737 pg/mL (0-124) Total Protein 7.8 g/dL (6.4-8.2) Albumin 3.6 g/dL (3.4-5.0) Albumin/Globulin Ratio 0.9 (1.0-1.7) Triglycerides Level 141 mg/dL (0-150) Cholesterol Level 198 mg/dL (0-200) LDL Cholesterol, Calculated 122 mg/dL (0-100) VLDL Cholesterol, Calculated 28 mg/dL (0-40) Non-HDL Cholesterol Calculated 150 mg/dL (0-129) HDL Cholesterol 48 mg/dL (40-60) Cholesterol/HDL Ratio 4.1 Thyroid Stimulating Hormone (TSH) 1.762 uIU/mL (0.358-3.74) Laboratory Tests Test 01/28/19 04:08 01/28/19 08:15 01/28/19 11:15 White Blood Count 5.6 x10^3/uL (4.0-11.0) Red Blood Count 4.33 x10^6/uL (3.50-5.40) Hemoglobin 13.4 g/dL (12.0-15.5) Hematocrit 39.3 % (36.0-47.0) Mean Corpuscular Volume 91 fL (79-100) Mean Corpuscular Hemoglobin 31 pg (25-35) Mean Corpuscular Hemoglobin Concent 34 g/dL (31-37) Red Cell Distribution Width 14.2 % (11.5-14.5) Platelet Count 207 x10^3/uL (140-400) Neutrophils (%) (Auto) 76 % (31-73) Lymphocytes (%) (Auto) 15 % (24-48) Monocytes (%) (Auto) 5 % (0-9) Eosinophils (%) (Auto) 3 % (0-3) Basophils (%) (Auto) 1 % (0-3) Neutrophils # (Auto) 4.3 x10^3uL (1.8-7.7) Lymphocytes # (Auto) 0.8 x10^3/uL (1.0-4.8) Monocytes # (Auto) 0.3 x10^3/uL (0.0-1.1) Eosinophils # (Auto) 0.2 x10^3/uL (0.0-0.7) Basophils # (Auto) 0.0 x10^3/uL (0.0-0.2) Prothrombin Time 12.3 SEC (11.7-14.0) Prothromb Time International Ratio 0.9 (0.8-1.1) Sodium Level 144 mmol/L (136-145) Potassium Level 3.6 mmol/L (3.5-5.1) Chloride Level 104 mmol/L (98-107) Carbon Dioxide Level 32 mmol/L (21-32) Anion Gap 8 (6-14) Blood Urea Nitrogen 7 mg/dL (7-20) Creatinine 0.7 mg/dL (0.6-1.0) Estimated GFR (Cockcroft-Gault) 82.3 BUN/Creatinine Ratio 10 (6-20) Glucose Level 101 mg/dL (70-99) Calcium Level 9.6 mg/dL (8.5-10.1) Magnesium Level 2.0 mg/dL (1.8-2.4) Total Bilirubin 0.8 mg/dL (0.2-1.0) Aspartate Amino Transf (AST/SGOT) 29 U/L (15-37) Alanine Aminotransferase (ALT/SGPT) 19 U/L (14-59) Alkaline Phosphatase 67 U/L (46-116) Troponin I Quantitative < 0.017 ng/mL (0.000-0.055) < 0.017 ng/mL (0.000-0.055) < 0.017 ng/mL (0.000-0.055) JO-Ddh-G-Type Natriuretic Peptide 1737 pg/mL (0-124) Total Protein 7.8 g/dL (6.4-8.2) Albumin 3.6 g/dL (3.4-5.0) Albumin/Globulin Ratio 0.9 (1.0-1.7) Triglycerides Level 141 mg/dL (0-150) Cholesterol Level 198 mg/dL (0-200) LDL Cholesterol, Calculated 122 mg/dL (0-100) VLDL Cholesterol, Calculated 28 mg/dL (0-40) Non-HDL Cholesterol Calculated 150 mg/dL (0-129) HDL Cholesterol 48 mg/dL (40-60) Cholesterol/HDL Ratio 4.1 Thyroid Stimulating Hormone (TSH) 1.762 uIU/mL (0.358-3.74) VTE Prophylaxis Ordered VTE Prophylaxis Devices: Yes VTE Pharmacological Prophylaxi: Yes Assessment/Plan Assessment/Plan Hypertensive urgency resolved History of coronary artery disease status post CABG Seasonal allergies History of COPD which seems to be advanced in nature Plan: continue with current medical management. Recommendations from solutions sales consultant greatly appreciated Most likely will be able to be dismissed later in the day BOLA SCHAEFER MD Jan 28, 2019 16:10
--- NOTE | 2019-01-28 18:27 | NUR ---
Discharge: Teaching verbal and written. Reviewed orders, diet, CHF, HTN, Follow-up, ect. Patient verbalized understanding. Patients son able to fill all blood pressure medications and brought them in prior to discharge. IV removed without complications, catheter tip in-tact. All belongings with patient. Patient assisted off of unit via wheelchair accompanied by and RN
== END 2019-01-28 18:20 | disposition home or self-care (01) | DRG 304 ==
LOC: ER 03:24 → 2 SOUTH 05:30
PROVIDERS: ADMIT Internal Medicine; ATTEND Internal Medicine
DX: I16.0 Hypertensive urgency (principal); I50.33 Acute on chronic diastolic (congestive) heart failure; I25.10 Atherosclerotic heart disease of native coronary artery without angina pectoris; J44.9 Chronic obstructive pulmonary disease, unspecified; K21.9 Gastro-esophageal reflux disease without esophagitis; I11.0 Hypertensive heart disease with heart failure; F03.90 Unspecified dementia, unspecified severity, without behavioral disturbance, psychotic disturbance, mood disturbance, and anxiety; F32.9 Major depressive disorder, single episode, unspecified; F41.9 Anxiety disorder, unspecified; J30.2 Other seasonal allergic rhinitis; M19.90 Unspecified osteoarthritis, unspecified site; Z95.1 Presence of aortocoronary bypass graft; Z90.710 Acquired absence of both cervix and uterus; Z88.1 Allergy status to other antibiotic agents; Z88.5 Allergy status to narcotic agent; Z88.0 Allergy status to penicillin; Z88.8 Allergy status to other drugs, medicaments and biological substances; Z82.49 Family history of ischemic heart disease and other diseases of the circulatory system
CPT/HCPCS: 36415; 71045; 80053; 80061; 83735; 83880; 84443; 84484; 85025; 85610; 93005; 93306; 94618; 96374; J1940; 99285-25

== ENCOUNTER 2020-06-02 01:53 | Observation (INO) | payer MEDICARE ==
[~2020-06-02] VITALS: Ht 165.1 cm; Wt 82.5 kg
[~2020-06-02 01:53] MED LIST changes: +AMLO10TA8 PO; +HYDR12.575 PO; +OMEG1CAP6 PO; +SIMV10TA15 PO; -SIMV10TA3 PO; +TRIA15OI TP; +[UNRECOGNIZED DRUG - CODE] PO
--- NOTE | 2020-06-02 02:39 | PHYS DOC ---
Past Medical History Past Medical History: CAD, COPD, GERD, Hypertension, Other Additional Past Medical Histor: seasoal allergies, eczema Past Surgical History: Coronary Bypass Surgery, Hysterectomy, Other Additional Past Surgical Histo: right upper lobectomy, dilation and curretage Smoking Status: Never Smoker Alcohol Use: None Drug Use: None General Adult EDM: Chief Complaint: FLANK PAIN HPI: HPI: Patient is a 74 year old female who presents with right flank pain that began 3 days ago. Pain is worse with sitting and movement. Patient has any vomiting or diarrhea. Patient denies any cough or shortness of breath. Pain is rated as severe in nature and located on the right flank area. Patient denies any back pain. Patient denies any radiation to the legs. Review of Systems: Review of Systems: Constitutional: Denies fever or chills. [] Eyes: Denies change in visual acuity. [] HENT: Denies nasal congestion or sore throat. [] Respiratory: Denies cough or shortness of breath. [] Cardiovascular: Denies chest pain or edema. [] GI: Patient complains of right flank and right upper quadrant pain. No nausea vomiting or diarrhea : Denies dysuria. [] Musculoskeletal: Denies back pain or joint pain. [] Integument: Denies rash. [] Neurologic: Denies headache, focal weakness or sensory changes. [] Endocrine: Denies polyuria or polydipsia. [] Lymphatic: Denies swollen glands. [] Psychiatric: Denies depression or anxiety. [] Heart Score: Risk Factors: Risk Factors: DM, Current or recent (<one month) smoker, HTN, HLP, family history of CAD, obesity. Risk Scores: Score 0 - 3: 2.5% MACE over next 6 weeks - Discharge Home Score 4 - 6: 20.3% MACE over next 6 weeks - Admit for Clinical Observation Score 7 - 10: 72.7% MACE over next 6 weeks - Early Invasive Strategies Allergies: Allergies: Allergies Coded Allergies Type Severity Reaction Last Updated Verified Penicillins Allergy Intermediate 01/22/19 Yes cefaclor Allergy Intermediate 01/22/19 Yes codeine Allergy Intermediate 01/22/19 Yes demeclocycline Allergy Intermediate 01/22/19 Yes erythromycin base Allergy Intermediate 01/22/19 Yes meperidine Allergy Intermediate 01/22/19 Yes methylphenidate Allergy Intermediate 01/22/19 Yes nystatin Allergy Intermediate 01/28/19 Yes pentazocine Allergy Intermediate 01/22/19 Yes propoxyphene Allergy Intermediate 01/22/19 Yes pseudoephedrine Allergy Intermediate 01/22/19 Yes triamcinolone Allergy Intermediate 01/22/19 Yes triprolidine Allergy Intermediate 01/22/19 Yes Physical Exam: PE: Constitutional: Well developed, well nourished, no acute distress, non-toxic appearance. [] HENT: Normocephalic, atraumatic, bilateral external ears normal, no trismus nose normal. [] Eyes: PERRLA, EOMI, conjunctiva normal, no discharge. [] Neck: Normal range of motion, no tenderness, supple, no stridor. [] Cardiovascular:Heart rate regular rhythm, Lungs & Thorax: Bilateral breath sounds clear to auscultation [] Abdomen: Bowel sounds normal, soft, tender to palpate in the right upper quadrant no masses, no pulsatile masses. [] Skin: Warm, dry, no erythema, no rash. [] Back: No tenderness, no CVA tenderness. [] Extremities: No tenderness, no cyanosis, no clubbing, ROM intact, no edema. [] Neurologic: Alert and oriented X 3, normal motor function, normal sensory function, no focal deficits noted. [] Psychologic: Affect normal, judgement normal, mood normal. [] Current Patient Data: Labs: Laboratory Tests Test 06/02/20 03:53 White Blood Count 5.6 x10^3/uL Red Blood Count 4.57 x10^6/uL Hemoglobin 14.0 g/dL Hematocrit 40.7 % Mean Corpuscular Volume 89 fL Mean Corpuscular Hemoglobin 31 pg Mean Corpuscular Hemoglobin Concent 34 g/dL Red Cell Distribution Width 13.9 % Platelet Count 234 x10^3/uL Neutrophils (%) (Auto) 70 % Lymphocytes (%) (Auto) 21 % Monocytes (%) (Auto) 5 % Eosinophils (%) (Auto) 3 % Basophils (%) (Auto) 1 % Neutrophils # (Auto) 3.9 x10^3/uL Lymphocytes # (Auto) 1.2 x10^3/uL Monocytes # (Auto) 0.3 x10^3/uL Eosinophils # (Auto) 0.2 x10^3/uL Basophils # (Auto) 0.0 x10^3/uL Sodium Level 141 mmol/L Potassium Level 4.0 mmol/L Chloride Level 104 mmol/L Carbon Dioxide Level 29 mmol/L Anion Gap 8 Blood Urea Nitrogen 10 mg/dL Creatinine 0.9 mg/dL Estimated GFR (Cockcroft-Gault) 61.4 BUN/Creatinine Ratio 11 Glucose Level 126 mg/dL Calcium Level 9.0 mg/dL Total Bilirubin 0.4 mg/dL Aspartate Amino Transf (AST/SGOT) 26 U/L Alanine Aminotransferase (ALT/SGPT) 24 U/L Alkaline Phosphatase 112 U/L Total Protein 7.7 g/dL Albumin 3.9 g/dL Albumin/Globulin Ratio 1.0 Lipase 88 U/L Current Medications Medications (Trade) Dose Ordered Sig/Kaity Route PRN Reason Start Time Stop Time Status Last Admin Dose Admin Dicyclomine HCl (Bentyl) 20 mg 1X ONCE IM 06/02/20 03:15 06/02/20 03:16 DC 06/02/20 03:49 Ondansetron HCl (Zofran) 4 mg 1X ONCE IVP 06/02/20 03:15 06/02/20 03:16 DC 06/02/20 03:50 Levofloxacin/ Dextrose 150 ml @ 100 mls/hr 1X ONCE IV 06/02/20 05:00 06/02/20 06:29 Current Medications Medications (Trade) Dose Ordered Sig/Kaity Route PRN Reason Start Time Stop Time Status Last Admin Dose Admin Dicyclomine HCl (Bentyl) 20 mg 1X ONCE IM 06/02/20 03:15 06/02/20 03:16 DC Ondansetron HCl (Zofran) 4 mg 1X ONCE IVP 06/02/20 03:15 06/02/20 03:16 DC EKG: EKG: EKG interpreted by me sinus bradycardia with a rate of 56 left axis deviation n onspecific ST changes normal intervals Radiology/Procedures: Radiology/Procedures: [][facility] [address] [place] [address] IMAGING REPORT Signed PATIENT: JERRELL WALKER ACCOUNT: [id number] : 1945 LOCATION: ER AGE: 74 SEX: F EXAM STATUS: REG ER ORD. PHYSICIAN: GUILLERMO BAILEY MD REASON: ruq pain PROCEDURE: ABDOMEN LTD Examination: Right upper quadrant abdominal ultrasound. INDICATION: Right upper quadrant abdominal pain. COMPARISON: None. TECHNIQUE: Grayscale and color Doppler imaging of the right upper quadrant abdomen was performed. Technologist reports the examination was notable for large body habitus with increased bowel gas. FINDINGS: The liver measures 18 cm and demonstrates diffuse increased echogenicity compatible with fatty infiltration. The gallbladder shows tenderness to the ultrasound probe and wall thickening up to 4 mm. It appears full of gallstones. No intrahepatic biliary dilation is identified. Common bile duct is borderline ectatic at 5.8 mm. Right kidney is normal measuring 10.1 x 4.2 x 3.9 cm. The pancreas is poorly visualized. The IVC is normal IMPRESSION: Cholelithiasis with sonographic evidence of acute cholecystitis. Electronically signed by: Michelle Mosqueda MD (06/02/2020 4:12 AM) [facility] [place] DICTATED and SIGNED BY: MICHELLE MOSQUEDA MD DATE: 06/02/20 0412 Course & Med Decision Making: Course & Med Decision Making Pertinent Labs and Imaging studies reviewed. (See chart for details) [] 74-year-old female presents with right upper quadrant pain. Patient has evidence of acute cholecystitis on ultrasound. Patient given dose IV antibiotics. Patient will be admitted to Dr. Antonio with consults pLACED to Dr. Pathak. d/w dr dinero, will admit Dragon Disclaimer: Richelle Disclaimer: This electronic medical record was generated, in whole or in part, using a voice recognition dictation system. Departure Departure Impression: Primary Impression: Acute cholecystitis Additional Impression: Right upper quadrant pain Disposition: 09 ADMITTED INPATIENT Admitting Physician: EBEN (FELIBERTO) Condition: STABLE Referrals: RAJEEV DESHPANDE MD (PCP) Additional Instructions: feliberto Justicifation of Admission Dx: Justifications for Admission: Justification of Admission Dx: Yes GUILLERMO BAILEY MD Jun 02, 2020 02:39
[2020-06-02] MEDS ORDERED: DICYCLOMINE 20 MG/2 ML VIAL. IM ONE (03:15)
[2020-06-02] MEDS ORDERED: ONDANSETRON PF 4 MG/2 ML VIAL. IVP ONE (03:15)
[2020-06-02 04:01] LABS: BASO % 1 % (0-3); EOS # 0.2 x10^3/uL (0.0-0.7); EOS % 3 % (0-3); HEMATOCRIT 40.7 % (36.0-47.0); LYMPH # 1.2 x10^3/uL (1.0-4.8); LYMPH % 21 % (24-48); MEAN CORPUSCULAR HEMOGLOBIN 31 pg (25-35); MEAN CORPUSCULAR HGB CONC 34 g/dL (31-37); MEAN CORPUSCULAR VOLUME 89 fL (79-100); MONO # 0.3 x10^3/uL (0.0-1.1); MONO % 5 % (0-9); NEUT # 3.9 x10^3/uL (1.8-7.7); NEUT % 70 % (31-73); PLATELET COUNT 234 x10^3/uL (140-400); RED BLOOD COUNT 4.57 x10^6/uL (3.50-5.40); RED CELL DISTRIBUTION WIDTH 13.9 % (11.5-14.5); WHITE BLOOD COUNT 5.6 x10^3/uL (4.0-11.0)
[2020-06-02 04:09] LABS: CREATININE 0.9 mg/dL (0.6-1.0); GFR 61.4
[2020-06-02 04:14] LABS: ALBUMIN 3.9 g/dL (3.4-5.0); TOTAL BILIRUBIN 0.4 mg/dL (0.2-1.0); TOTAL PROTEIN 7.7 g/dL (6.4-8.2)
--- NOTE | 2020-06-02 04:15 | RAD ---
Examination: Right upper quadrant abdominal ultrasound. INDICATION: Right upper quadrant abdominal pain. COMPARISON: None. TECHNIQUE: Grayscale and color Doppler imaging of the right upper quadrant abdomen was performed. Technologist reports the examination was notable for large body habitus with increased bowel gas. FINDINGS: The liver measures 18 cm and demonstrates diffuse increased echogenicity compatible with fatty infiltration. The gallbladder shows tenderness to the ultrasound probe and wall thickening up to 4 mm. It appears full of gallstones. No intrahepatic biliary dilation is identified. Common bile duct is borderline ectatic at 5.8 mm. Right kidney is normal measuring 10.1 x 4.2 x 3.9 cm. The pancreas is poorly visualized. The IVC is normal IMPRESSION: Cholelithiasis with sonographic evidence of acute cholecystitis. Electronically signed by: Noa Mosqueda MD (06/02/2020 4:12 AM) [facility] [place]
[2020-06-02 04:34] LABS: BILIRUBIN,URINE NEGATIVE (NEG); CLARITY,URINE CLEAR; COLOR,URINE YELLOW; NITRITE,URINE NEGATIVE (NEG); PROTEIN,URINE NEGATIVE (NEG-TRACE)
[2020-06-02 04:42] LABS: SQUAMOUS EPITHELIAL CELL,UR MOD /LPF
[2020-06-02 04:43] LABS: BACTERIA,URINE FEW /HPF (0-FEW)
[2020-06-02] MEDS ORDERED: ONDANSETRON PF 4 MG/2 ML VIAL. IV PRN ×2 (04:45→08:00)
[2020-06-02 04:52] LABS: PROTHROMBIN TIME PATIENT 12.8 SEC (11.7-14.0)
--- NOTE | 2020-06-02 05:12 | RAD ---
EXAM: PORTABLE CHEST 1V INDICATION: Reason: PREOP / Spl. Instructions: / History: . TECHNIQUE: Single view COMPARISON: None FINDINGS: The heart size is normal. The great vessels show aortic calcifications but otherwise appear unremarkable. There is no hilar or mediastinal mass. The lungs are clear. There is no pleural effusion or pneumothorax. There are no significant osseous abnormalities. IMPRESSION: No active cardiopulmonary disease. Electronically signed by: Noa Mosqueda MD (06/02/2020 5:09 AM) [facility] [place]
[2020-06-02] MEDS: IV NORMAL SALINE 1000ML BAG 1,000 ML IV SCH ×3 (05:38→21:41)
--- NOTE | 2020-06-02 06:17 | EKG ---
[facility] [address] [place] [address] Test Date: 2020-06-02 Test Time: 05:34:51 Pat Name: JERRELL WALKER Department: Room: Gender: F [employer]: : 1945 Requested By: GUILLERMO BAILEY Order Number: [id number] Reading MD: Measurements Intervals [place] Rate: 56 P: 39 FL: 202 QRS: -27 QRSD: 80 T: 20 QT: 460 QTc: 447 Interpretive Statements SINUS RHYTHM LEFTWARD AXIS OTHERWISE NORMAL ECG RI6.02 No previous ECG available for comparison
[2020-06-02] MEDS ORDERED: LOSA100T14 PO (08:01)
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
[2020-06-02] MEDS ORDERED: LISINOPRIL 20 MG TABLET PO SCH (09:00)
[2020-06-02] MEDS: PANTOPRAZOLE 40 MG TABLET.DR. PO SCH (10:06)
[2020-06-02] MEDS: amLODIPine BESYLATE 10 MG TABLET PO SCH (10:09)
[2020-06-02] MEDS: hydroCHLOROthiazide 12.5 MG CAPSULE PO SCH (10:09)
[2020-06-02] MEDS: LOSARTAN POTASSIUM 50 MG TABLET. PO SCH (10:09)
[2020-06-02] MEDS: NYSTATIN TOPICAL POWDER 15GM BOTTLE. TP SCH ×2 (10:10→21:00)
[2020-06-02 12:25] VITALS: BP 148/68
--- NOTE | 2020-06-02 13:24 | PDOC2 ---
CARDIAC CONSULT DATE OF CONSULT Date of Consult DATE: 06/02/20 TIME: 13:15 REASON FOR CONSULT Reason for Consult: Preop eval REFERRING PHYSICIAN Referring Physician: Alberto SOURCE Source: Chart review, Patient HISTORY OF PRESENT ILLNESS HISTORY OF PRESENT ILLNESS This is a pleasant 74 yo female admitted for complains of abdominal pain. Reports that this has been going on in the last 3 days, worse this last night going into morning. Mainly right side going to middle of abdomen. further imaging shows acute cholecystitis with multiple gallstones. Denies any chest pain, SOA and no notable decrease in activity tolerance. The consult is for preop cardiac eval. No nausea/vomiting or diarrhea but her right side abdomen is tender especially with palpation. PAST MEDICAL HISTORY Cardiovascular: CHF, HTN, Other (asymptomatic SB) CENTRAL NERVOUS SYSTEM: Dementia GI: GERD Psych: Depression Musculoskeletal: Osteoarthritis ENT: Other (cataract) Renal/: UTI Endocrine: No pertinent hx Dermatology: Psoriasis PAST SURGICAL HISTORY Past Surgical History: Hysterectomy (partial), Other (RUL lobectomy) FAMILY HISTORY Family History: Hypertension SOCIAL HISTORY Smoke: No ALCOHOL: none Drugs: None CURRENT MEDICATIONS CURRENT MEDICATIONS Current Medications Medications (Trade) Dose Ordered Sig/Kaity Route PRN Reason Start Time Stop Time Status Last Admin Dose Admin Dicyclomine HCl (Bentyl) 20 mg 1X ONCE IM 06/02/20 03:15 06/02/20 03:16 DC 06/02/20 03:49 Ondansetron HCl (Zofran) 4 mg 1X ONCE IVP 06/02/20 03:15 06/02/20 03:16 DC 06/02/20 03:50 Levofloxacin/ Dextrose 150 ml @ 100 mls/hr 1X ONCE IV 06/02/20 05:00 06/02/20 06:29 DC 06/02/20 05:38 Sodium Chloride 1,000 ml @ 125 mls/hr Q8H IV 06/02/20 04:45 06/03/20 04:44 06/02/20 05:38 Amlodipine Besylate (Norvasc) 10 mg DAILY PO 06/02/20 09:00 06/02/20 10:09 Hydrochlorothiazide (Microzide) 12.5 mg DAILY PO 06/02/20 09:00 06/02/20 10:09 Nystatin (Nystop) 1 yanet BID TP 06/02/20 09:00 06/02/20 10:10 Pantoprazole Sodium (Protonix) 40 mg DAILYAC PO 06/02/20 08:30 06/02/20 10:06 Losartan Potassium (Cozaar) 100 mg DAILY PO 06/02/20 09:00 06/02/20 10:09 ALLERGIES ALLERGIES: Coded Allergies: Penicillins (Verified Allergy, Intermediate, 01/22/19) cefaclor (Verified Allergy, Intermediate, 01/22/19) codeine (Verified Allergy, Intermediate, 01/22/19) demeclocycline (Verified Allergy, Intermediate, 01/22/19) erythromycin base (Verified Allergy, Intermediate, 01/22/19) meperidine (Verified Allergy, Intermediate, 01/22/19) methylphenidate (Verified Allergy, Intermediate, 01/22/19) nystatin (Verified Allergy, Intermediate, 01/28/19) Has tolerated nystatin powder pentazocine (Verified Allergy, Intermediate, 01/22/19) propoxyphene (Verified Allergy, Intermediate, 01/22/19) pseudoephedrine (Verified Allergy, Intermediate, 01/22/19) triamcinolone (Verified Allergy, Intermediate, 01/22/19) triprolidine (Verified Allergy, Intermediate, 01/22/19) ROS Review of System 14 point ROS evaluated with pertinent positives noted per HPI PHYSICAL EXAM General: Alert, Oriented X3, Cooperative, No acute distress HEENT: Atraumatic, Mucous membr. moist/pink Lungs: Clear to auscultation, Normal air movement Heart: Regular rate (SR), Normal S1, Normal S2, No murmurs Abdomen: Soft, No tenderness Extremities: No cyanosis, Other (1+ bilateral LE pitting edema) Skin: No breakdown, No significant lesion Neuro: Normal speech, Sensation intact Psych/Mental Status: Mental status NL, Mood NL MUSCULOSKELETAL: Osteoarthritic changes both hands VITALS/I&O VITALS/I&O: Vital Signs Date Time Temp Pulse Resp B/P (MAP) Pulse Ox O2 Delivery O2 Flow Rate FiO2 06/02/20 12:25 98.7 62 18 148/68 (94) 90 Room Air 98.7 LABS Lab: Laboratory Tests Test 06/02/20 03:53 06/02/20 04:27 06/02/20 07:30 White Blood Count 5.6 x10^3/uL (4.0-11.0) Red Blood Count 4.57 x10^6/uL (3.50-5.40) Hemoglobin 14.0 g/dL (12.0-15.5) Hematocrit 40.7 % (36.0-47.0) Mean Corpuscular Volume 89 fL (79-100) Mean Corpuscular Hemoglobin 31 pg (25-35) Mean Corpuscular Hemoglobin Concent 34 g/dL (31-37) Red Cell Distribution Width 13.9 % (11.5-14.5) Platelet Count 234 x10^3/uL (140-400) Neutrophils (%) (Auto) 70 % (31-73) Lymphocytes (%) (Auto) 21 % (24-48) L Monocytes (%) (Auto) 5 % (0-9) Eosinophils (%) (Auto) 3 % (0-3) Basophils (%) (Auto) 1 % (0-3) Neutrophils # (Auto) 3.9 x10^3/uL (1.8-7.7) Lymphocytes # (Auto) 1.2 x10^3/uL (1.0-4.8) Monocytes # (Auto) 0.3 x10^3/uL (0.0-1.1) Eosinophils # (Auto) 0.2 x10^3/uL (0.0-0.7) Basophils # (Auto) 0.0 x10^3/uL (0.0-0.2) Prothrombin Time 12.8 SEC (11.7-14.0) Prothrombin Time INR 1.0 (0.8-1.1) Activated Partial Thromboplast Time 27 SEC (24-38) Sodium Level 141 mmol/L (136-145) Potassium Level 4.0 mmol/L (3.5-5.1) Chloride Level 104 mmol/L (98-107) Carbon Dioxide Level 29 mmol/L (21-32) Anion Gap 8 (6-14) Blood Urea Nitrogen 10 mg/dL (7-20) Creatinine 0.9 mg/dL (0.6-1.0) Estimated GFR (Cockcroft-Gault) 61.4 BUN/Creatinine Ratio 11 (6-20) Glucose Level 126 mg/dL (70-99) H Calcium Level 9.0 mg/dL (8.5-10.1) Total Bilirubin 0.4 mg/dL (0.2-1.0) Aspartate Amino Transferase (AST) 26 U/L (15-37) Alanine Aminotransferase (ALT) 24 U/L (14-59) Alkaline Phosphatase 112 U/L (46-116) PV-Rmg-M-Type Natriuretic Peptide 209 pg/mL (0-124) H Total Protein 7.7 g/dL (6.4-8.2) Albumin 3.9 g/dL (3.4-5.0) Albumin/Globulin Ratio 1.0 (1.0-1.7) Lipase 88 U/L (73-393) Urine Collection Type Unknown Urine Color Yellow Urine Clarity Clear Urine pH 6.0 (<5.0-8.0) Urine Specific Pillow 1.015 (1.000-1.030) Urine Protein Negative mg/dL (NEG-TRACE) Urine Glucose (UA) Negative mg/dL (NEG) Urine Ketones (Stick) Negative mg/dL (NEG) Urine Blood Negative (NEG) Urine Nitrite Negative (NEG) Urine Bilirubin Negative (NEG) Urine Urobilinogen Dipstick 1.0 mg/dL (0.2 mg/dL) Urine Leukocyte Esterase Negative (NEG) Urine RBC 1-2 /HPF (0-2) Urine WBC 5-10 /HPF (0-4) Urine Squamous Epithelial Cells Mod /LPF Urine Bacteria Few /HPF (0-FEW) Urine Mucus Slight /LPF SARS-CoV-2 Antigen (Rapid) Negative (NEGATIVE) Laboratory Tests 06/02/20 03:53 Laboratory Tests 06/02/20 03:53 ASSESSMENT/PLAN ASSESSMENT/PLAN 1. Acute cholecystitis/cholelithiasis 2. Hx of asymptomatic SB 3. HTN: mildly labile Recommendations 1. Obtain TTE for preop. Cardiac risk index low risk for perioperative CV events for noncardiac surgery. EKG reviewed, no changes. 2. May resume home BP meds if not DARYNO BERNADETTE DOMINIQUE [employer] Jun 02, 2020 13:24
[2020-06-02 15:00] VITALS: BP 117/87
[2020-06-02 19:00] VITALS: BP 140/64
--- NOTE | 2020-06-02 20:19 | PDOC2 ---
CONSULT Date of Consult Date of Consult DATE: 06/02/20 TIME: 20:11 Reason for Consult Reason for Consult: calculous cholecystitis Referring Physician Referring Physician: Dr. Short Identification/Chief Complaint Chief Complaint abd pain Source Source: Chart review, Patient History of Present Illness Reason for Visit: 74 yo F with c/o several days of abd pain. Previous episodes of abd pain, but not to this extent. Seen coming out of ER. Past Medical History Cardiovascular: CHF, HTN, Other (asymptomatic SB) Pulmonary: No pertinent hx CENTRAL NERVOUS SYSTEM: Dementia GI: GERD Heme/Onc: No pertinent hx Hepatobiliary: No pertinent hx Psych: Depression Musculoskeletal: Osteoarthritis Rheumatologic: No pertinent hx Infectious disease: No pertinent hx ENT: Other (cataract) Renal/: UTI Endocrine: No pertinent hx Dermatology: Psoriasis Past Surgical History Past Surgical History: Hysterectomy (partial), Other (RUL lobectomy) Family History Family History: Hypertension Social History No ALCOHOL: none Drugs: None Lives: with Family Current Problem List Problem List Problems Medical Problems: (1) Acute cholecystitis Status: Acute (2) Right upper quadrant pain Status: Acute Current Medications Current Medications Current Medications Dicyclomine HCl (Bentyl) 20 mg 1X ONCE IM Last administered on 06/02/20at 03:49; Start 06/02/20 at 03:15; Stop 06/02/20 at 03:16; Status DC Ondansetron HCl (Zofran) 4 mg 1X ONCE IVP Last administered on 06/02/20at 03:50; Start 06/02/20 at 03:15; Stop 06/02/20 at 03:16; Status DC Levofloxacin/ Dextrose 150 ml @ 100 mls/hr 1X ONCE IV Last administered on 06/02/20at 05:38; Start 06/02/20 at 05:00; Stop 06/02/20 at 06:29; Status DC Ondansetron HCl (Zofran) 4 mg PRN Q8HRS PRN IV NAUSEA/VOMITING; Start 06/02/20 at 04:45; Stop 06/02/20 at 08:00; Status DC Sodium Chloride 1,000 ml @ 125 mls/hr Q8H IV Last administered on 06/02/20at 13:53; Start 06/02/20 at 04:45; Stop 06/03/20 at 04:44 Ondansetron HCl (Zofran) 4 mg PRN Q4HRS PRN IV NAUSEA/VOMITING; Start 06/02/20 at 08:00 Amlodipine Besylate (Norvasc) 10 mg DAILY PO Last administered on 06/02/20 10:09; Start 06/02/20 at 09:00 Hydrochlorothiazide (Microzide) 12.5 mg DAILY PO Last administered on 06/02/20at 10:09; Start 06/02/20 at 09:00 Lisinopril (Prinivil) 40 mg DAILY PO ; Start 06/02/20 at 09:00; Stop 06/02/20 at 08:02; Status DC Nystatin (Nystop) 1 dev BID TP Last administered on 06/02/20 10:10; Start 05/13 01/01 at 09:00 Pantoprazole Sodium (Protonix) 40 mg DAILYAC PO Last administered on 06/02/20at 10:06; Start 06/02/20 at 08:30 Losartan Potassium (Cozaar) 100 mg DAILY PO Last administered on 06/02/20at 10:09; Start 06/02/20 at 09:00 Active Scripts Active Nystop (Nystatin) 60 Gm Powder 1 Dev TP BID 30 Days Lisinopril 40 Mg Tablet 40 Mg PO DAILY 60 Days Reported Losartan Potassium 100 Mg Tablet 100 Mg PO DAILY 90 Days Advil Liqui-Gels (Ibuprofen) 200 Mg Capsule 200 Mg PO Q6HRS PRN Triamcinolone Acetonide 0.1% Oint (Triamcinolone Acetonide) 15 Gm Oint...g. 1 Dev TP BID MIX WITH EUCERIN DIRECTED BY PHYSICIAN Fish Oil 1,000 Mg Capsule ([place]-3 Fatty Acids/Fish Oil) 1 Each Capsule 1 Each PO DAILY Amlodipine Besylate 10 Mg Tablet 10 Mg PO DAILY Hydrochlorothiazide Capsule (Hydrochlorothiazide) 12.5 Mg Capsule 12.5 Mg PO DAILY Protonix Packet (Pantoprazole Sodium) 40 Mg Granpkt.dr 40 Mg PO DAILY Allergies Allergies: Coded Allergies: Penicillins (Verified Allergy, Intermediate, 01/22/19) cefaclor (Verified Allergy, Intermediate, 01/22/19) codeine (Verified Allergy, Intermediate, 01/22/19) demeclocycline (Verified Allergy, Intermediate, 01/22/19) erythromycin base (Verified Allergy, Intermediate, 01/22/19) meperidine (Verified Allergy, Intermediate, 01/22/19) methylphenidate (Verified Allergy, Intermediate, 01/22/19) nystatin (Verified Allergy, Intermediate, 01/28/19) Has tolerated nystatin powder pentazocine (Verified Allergy, Intermediate, 01/22/19) propoxyphene (Verified Allergy, Intermediate, 01/22/19) pseudoephedrine (Verified Allergy, Intermediate, 01/22/19) triamcinolone (Verified Allergy, Intermediate, 01/22/19) triprolidine (Verified Allergy, Intermediate, 01/22/19) ROS Gastrointestinal: Yes Abdominal Pain Physical Exam General: Alert, Oriented X3, Cooperative, mild distress HEENT: Atraumatic Lungs: Normal air movement Abdomen: Soft, Other (mild TTP) Extremities: No clubbing, No cyanosis Skin: No rashes, No breakdown Neuro: Normal speech, Sensation intact Psych/Mental Status: Mental status NL, Mood NL Vitals VITALS Vital Signs Date Time Temp Pulse Resp B/P (MAP) Pulse Ox O2 Delivery O2 Flow Rate FiO2 06/02/20 19:00 98.2 64 20 140/64 (89) 94 Room Air 98.2 Labs Labs Laboratory Tests Test 06/02/20 03:53 06/02/20 04:27 06/02/20 07:30 White Blood Count 5.6 x10^3/uL (4.0-11.0) Red Blood Count 4.57 x10^6/uL (3.50-5.40) Hemoglobin 14.0 g/dL (12.0-15.5) Hematocrit 40.7 % (36.0-47.0) Mean Corpuscular Volume 89 fL (79-100) Mean Corpuscular Hemoglobin 31 pg (25-35) Mean Corpuscular Hemoglobin Concent 34 g/dL (31-37) Red Cell Distribution Width 13.9 % (11.5-14.5) Platelet Count 234 x10^3/uL (140-400) Neutrophils (%) (Auto) 70 % (31-73) Lymphocytes (%) (Auto) 21 % (24-48) Monocytes (%) (Auto) 5 % (0-9) Eosinophils (%) (Auto) 3 % (0-3) Basophils (%) (Auto) 1 % (0-3) Neutrophils # (Auto) 3.9 x10^3/uL (1.8-7.7) Lymphocytes # (Auto) 1.2 x10^3/uL (1.0-4.8) Monocytes # (Auto) 0.3 x10^3/uL (0.0-1.1) Eosinophils # (Auto) 0.2 x10^3/uL (0.0-0.7) Basophils # (Auto) 0.0 x10^3/uL (0.0-0.2) Prothrombin Time 12.8 SEC (11.7-14.0) Prothromb Time International Ratio 1.0 (0.8-1.1) Activated Partial Thromboplast Time 27 SEC (24-38) Sodium Level 141 mmol/L (136-145) Potassium Level 4.0 mmol/L (3.5-5.1) Chloride Level 104 mmol/L (98-107) Carbon Dioxide Level 29 mmol/L (21-32) Anion Gap 8 (6-14) Blood Urea Nitrogen 10 mg/dL (7-20) Creatinine 0.9 mg/dL (0.6-1.0) Estimated GFR (Cockcroft-Gault) 61.4 BUN/Creatinine Ratio 11 (6-20) Glucose Level 126 mg/dL (70-99) Calcium Level 9.0 mg/dL (8.5-10.1) Total Bilirubin 0.4 mg/dL (0.2-1.0) Aspartate Amino Transf (AST/SGOT) 26 U/L (15-37) Alanine Aminotransferase (ALT/SGPT) 24 U/L (14-59) Alkaline Phosphatase 112 U/L (46-116) MA-Oql-K-Type Natriuretic Peptide 209 pg/mL (0-124) Total Protein 7.7 g/dL (6.4-8.2) Albumin 3.9 g/dL (3.4-5.0) Albumin/Globulin Ratio 1.0 (1.0-1.7) Lipase 88 U/L (73-393) Urine Collection Type Unknown Urine Color Yellow Urine Clarity Clear Urine pH 6.0 (<5.0-8.0) Urine Specific [place] 1.015 (1.000-1.030) Urine Protein Negative mg/dL (NEG-TRACE) Urine Glucose (UA) Negative mg/dL (NEG) Urine Ketones (Stick) Negative mg/dL (NEG) Urine Blood Negative (NEG) Urine Nitrite Negative (NEG) Urine Bilirubin Negative (NEG) Urine Urobilinogen Dipstick 1.0 mg/dL (0.2 mg/dL) Urine Leukocyte Esterase Negative (NEG) Urine RBC 1-2 /HPF (0-2) Urine WBC 5-10 /HPF (0-4) Urine Squamous Epithelial Cells Mod /LPF Urine Bacteria Few /HPF (0-FEW) Urine Mucus Slight /LPF SARS-CoV-2 Antigen (Rapid) Negative (NEGATIVE) Laboratory Tests Test 06/02/20 03:53 06/02/20 04:27 06/02/20 07:30 White Blood Count 5.6 x10^3/uL (4.0-11.0) Red Blood Count 4.57 x10^6/uL (3.50-5.40) Hemoglobin 14.0 g/dL (12.0-15.5) Hematocrit 40.7 % (36.0-47.0) Mean Corpuscular Volume 89 fL (79-100) Mean Corpuscular Hemoglobin 31 pg (25-35) Mean Corpuscular Hemoglobin Concent 34 g/dL (31-37) Red Cell Distribution Width 13.9 % (11.5-14.5) Platelet Count 234 x10^3/uL (140-400) Neutrophils (%) (Auto) 70 % (31-73) Lymphocytes (%) (Auto) 21 % (24-48) Monocytes (%) (Auto) 5 % (0-9) Eosinophils (%) (Auto) 3 % (0-3) Basophils (%) (Auto) 1 % (0-3) Neutrophils # (Auto) 3.9 x10^3/uL (1.8-7.7) Lymphocytes # (Auto) 1.2 x10^3/uL (1.0-4.8) Monocytes # (Auto) 0.3 x10^3/uL (0.0-1.1) Eosinophils # (Auto) 0.2 x10^3/uL (0.0-0.7) Basophils # (Auto) 0.0 x10^3/uL (0.0-0.2) Prothrombin Time 12.8 SEC (11.7-14.0) Prothromb Time International Ratio 1.0 (0.8-1.1) Activated Partial Thromboplast Time 27 SEC (24-38) Sodium Level 141 mmol/L (136-145) Potassium Level 4.0 mmol/L (3.5-5.1) Chloride Level 104 mmol/L (98-107) Carbon Dioxide Level 29 mmol/L (21-32) Anion Gap 8 (6-14) Blood Urea Nitrogen 10 mg/dL (7-20) Creatinine 0.9 mg/dL (0.6-1.0) Estimated GFR (Cockcroft-Gault) 61.4 BUN/Creatinine Ratio 11 (6-20) Glucose Level 126 mg/dL (70-99) Calcium Level 9.0 mg/dL (8.5-10.1) Total Bilirubin 0.4 mg/dL (0.2-1.0) Aspartate Amino Transf (AST/SGOT) 26 U/L (15-37) Alanine Aminotransferase (ALT/SGPT) 24 U/L (14-59) Alkaline Phosphatase 112 U/L (46-116) OS-Mtj-C-Type Natriuretic Peptide 209 pg/mL (0-124) Total Protein 7.7 g/dL (6.4-8.2) Albumin 3.9 g/dL (3.4-5.0) Albumin/Globulin Ratio 1.0 (1.0-1.7) Lipase 88 U/L (73-393) Urine Collection Type Unknown Urine Color Yellow Urine Clarity Clear Urine pH 6.0 (<5.0-8.0) Urine Specific [place] 1.015 (1.000-1.030) Urine Protein Negative mg/dL (NEG-TRACE) Urine Glucose (UA) Negative mg/dL (NEG) Urine Ketones (Stick) Negative mg/dL (NEG) Urine Blood Negative (NEG) Urine Nitrite Negative (NEG) Urine Bilirubin Negative (NEG) Urine Urobilinogen Dipstick 1.0 mg/dL (0.2 mg/dL) Urine Leukocyte Esterase Negative (NEG) Urine RBC 1-2 /HPF (0-2) Urine WBC 5-10 /HPF (0-4) Urine Squamous Epithelial Cells Mod /LPF Urine Bacteria Few /HPF (0-FEW) Urine Mucus Slight /LPF SARS-CoV-2 Antigen (Rapid) Negative (NEGATIVE) Images Images US concerning for calculous cholecystitis Assessment/Plan Assessment/Plan Calculous cholecystitis pt with multiple admits for CHF and was scheduled for f/u with cards cardiology to evaluate and will consider cholecystectomy pending evaluation. Concern for high risk of surgery. Thanks for consult! JUSTIN JADE MD Jun 02, 2020 20:19
[2020-06-02 23:00] VITALS: BP 154/71
[2020-06-03] MEDS ORDERED: ACETAMINOPHEN 325 MG TABLET. PO PRN (01:15)
[2020-06-03] MEDS ORDERED: busPIRone 5 MG TABLET. PO ONE (01:15)
[2020-06-03 03:00] VITALS: BP 142/72
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
[2020-06-03] MEDS: PANTOPRAZOLE 40 MG TABLET.DR. PO SCH ×2 (06:56→15:19)
[2020-06-03 07:00] VITALS: BP 144/67
--- NOTE | 2020-06-03 09:27 | CARD ---
MR#: [id number] Date of Study: 06/03/2020 Ordering Physician: BERNADETTE DOMINIQUE, Referring Physician: BERNADETTE DOMINIQUE, Tech: Liudmila Mckeon APPROVED REPORT EXAM: Two-dimensional and M-mode echocardiogram with Doppler and color Doppler. Other Information Quality : AverageHR: 58bpm INDICATION COPD Pre-Op Cardiac Disease: CAD RISK FACTORS Hypertension 2D DIMENSIONS RVDd3.4 (2.9-3.5cm)Left Atrium(2D)4.0 (1.6-4.0cm) IVSd1.3 (0.7-1.1cm)Aortic Root(2D)3.1 (2.0-3.7cm) LVDd4.8 (3.9-5.9cm)LVOT Diameter2.1 (1.8-2.4cm) PWd1.1 (0.7-1.1cm)LVDs3.2 (2.5-4.0cm) FS (%) 35.0 %SV70.6 ml Aortic Valve AoV Peak Manoj.131.2cm/sAoV VTI32.3cm AO Peak GR.6.9mmHgLVOT Peak Manoj.108.5cm/s LVOT VTI 27.89cmAO Mean GR.3mmHg CAILIN (VMAX)2.52ae0HLX (VTI)3.08cm2 Mitral Valve MV E Imikphzj88.6cm/sMV DECEL [id number] MV A Hadwvsvm87.6cm/sMV E Mean Gr.2mmHg MV VRO07slA/A Ratio1.5 MVA (PHT)4.07cm2 TDI E/Lateral E'9.2E/Medial E'11.3 Pulmonary Valve PV Peak Lxwoxnlw620.1cm/sPV Peak Grad.4mmHg Tricuspid Valve TR P. Rahmwisx644kb/sRAP [id number] TR Peak Gr.82ojQoDEHR25oxOm Pulmonary Vein S1 Mnlbyaus07.9cm/sD2 Duellkqj91.9cm/s PVa [id number] LEFT VENTRICLE The left ventricle is normal size. There is mild concentric left ventricular hypertrophy. The left ve ntricular systolic function is normal and the ejection fraction is within normal range. The Ejection Fraction is 55-60%. There is normal LV segmental wall motion. Transmitral Doppler flow pattern is Gra de II-pseudonormal filling dynamics. RIGHT VENTRICLE The right ventricle is normal size. There is normal right ventricular wall thickness. The right ventr icular systolic function is normal. ATRIA The left atrium size is normal. The right atrium size is normal. The interatrial septum is intact wit h no evidence for an atrial septal defect or patent foramen ovale as noted on 2-D or Doppler imaging. AORTIC VALVE The aortic valve is thickened but opens well. Doppler and Color Flow revealed no significant aortic r egurgitation. Calculated aortic valve area is 3.26 cm2 with maximum pressure gradient of 8 mmHg and m sherley pressure gradient of 4 mmHg. There is no significant aortic valvular stenosis. MITRAL VALVE The mitral valve is normal in structure and function. There is no evidence of mitral valve prolapse. There is no mitral valve stenosis. Doppler and Color-flow revealed trace mitral regurgitation. TRICUSPID VALVE The tricuspid valve is normal in structure and function. Doppler and Color Flow revealed trace tricus pid regurgitation with an estimated PAP of 37 mmHg. There is no tricuspid valve stenosis. PULMONIC VALVE The pulmonic valve is not well visualized. Doppler and Color Flow revealed trace pulmonic valvular re gurgitation. GREAT VESSELS The aortic root is normal in size. The IVC is normal in size and collapses >50% with inspiration. PERICARDIAL EFFUSION There is no evidence of significant pericardial effusion. Critical Notification Critical Value: No <Conclusion> The left ventricle is normal size. The left ventricular systolic function is normal and the ejection fraction is within normal range. The Ejection Fraction is 55-60%. There is mild concentric left ventricular hypertrophy. Doppler and Color Flow revealed no significant aortic regurgitation. Calculated aortic valve area is 3.26 cm2 with maximum pressure gradient of 8 mmHg and mean pressure g radient of 4 mmHg. There is no significant aortic valvular stenosis. Doppler and Color-flow revealed trace mitral regurgitation. Doppler and Color Flow revealed trace tricuspid regurgitation with an estimated PAP of 37 mmHg. Signed by : Jose Doherty MD Electronically Approved : 06/03/2020 09:27:30
[2020-06-03] MEDS: NYSTATIN TOPICAL POWDER 15GM BOTTLE. TP SCH (10:08)
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
[2020-06-03 11:00] VITALS: BP 141/74
--- NOTE | 2020-06-03 12:34 | PDOC ---
YELENA LONDON ADMINISTRATIVE ASSISTANT DATA ENTRY 06/03/20 1234: SURGICAL PROGRESS NOTE Subjective no pain currently not interested in surgery Vital Signs Vital Signs Date Time Temp Pulse Resp B/P (MAP) Pulse Ox O2 Delivery O2 Flow Rate FiO2 06/03/20 11:00 97.8 61 18 141/74 (96) 93 Room Air 97.8 I&O Intake and Output 06/03/20 07:00 Intake Total 270 ml Balance 270 ml Intake Oral 120 ml IV Total 150 ml # Voids 3 General: Alert, Oriented X3, Cooperative Abdomen: Soft, No tenderness Labs Laboratory Tests Test 06/02/20 03:53 06/02/20 04:27 06/02/20 07:30 White Blood Count 5.6 x10^3/uL (4.0-11.0) Red Blood Count 4.57 x10^6/uL (3.50-5.40) Hemoglobin 14.0 g/dL (12.0-15.5) Hematocrit 40.7 % (36.0-47.0) Mean Corpuscular Volume 89 fL (79-100) Mean Corpuscular Hemoglobin 31 pg (25-35) Mean Corpuscular Hemoglobin Concent 34 g/dL (31-37) Red Cell Distribution Width 13.9 % (11.5-14.5) Platelet Count 234 x10^3/uL (140-400) Neutrophils (%) (Auto) 70 % (31-73) Lymphocytes (%) (Auto) 21 % (24-48) Monocytes (%) (Auto) 5 % (0-9) Eosinophils (%) (Auto) 3 % (0-3) Basophils (%) (Auto) 1 % (0-3) Neutrophils # (Auto) 3.9 x10^3/uL (1.8-7.7) Lymphocytes # (Auto) 1.2 x10^3/uL (1.0-4.8) Monocytes # (Auto) 0.3 x10^3/uL (0.0-1.1) Eosinophils # (Auto) 0.2 x10^3/uL (0.0-0.7) Basophils # (Auto) 0.0 x10^3/uL (0.0-0.2) Prothrombin Time 12.8 SEC (11.7-14.0) Prothromb Time International Ratio 1.0 (0.8-1.1) Activated Partial Thromboplast Time 27 SEC (24-38) Sodium Level 141 mmol/L (136-145) Potassium Level 4.0 mmol/L (3.5-5.1) Chloride Level 104 mmol/L (98-107) Carbon Dioxide Level 29 mmol/L (21-32) Anion Gap 8 (6-14) Blood Urea Nitrogen 10 mg/dL (7-20) Creatinine 0.9 mg/dL (0.6-1.0) Estimated GFR (Cockcroft-Gault) 61.4 BUN/Creatinine Ratio 11 (6-20) Glucose Level 126 mg/dL (70-99) Calcium Level 9.0 mg/dL (8.5-10.1) Total Bilirubin 0.4 mg/dL (0.2-1.0) Aspartate Amino Transf (AST/SGOT) 26 U/L (15-37) Alanine Aminotransferase (ALT/SGPT) 24 U/L (14-59) Alkaline Phosphatase 112 U/L (46-116) ZX-Gpz-J-Type Natriuretic Peptide 209 pg/mL (0-124) Total Protein 7.7 g/dL (6.4-8.2) Albumin 3.9 g/dL (3.4-5.0) Albumin/Globulin Ratio 1.0 (1.0-1.7) Lipase 88 U/L (73-393) Urine Collection Type Unknown Urine Color Yellow Urine Clarity Clear Urine pH 6.0 (<5.0-8.0) Urine Specific [place] 1.015 (1.000-1.030) Urine Protein Negative mg/dL (NEG-TRACE) Urine Glucose (UA) Negative mg/dL (NEG) Urine Ketones (Stick) Negative mg/dL (NEG) Urine Blood Negative (NEG) Urine Nitrite Negative (NEG) Urine Bilirubin Negative (NEG) Urine Urobilinogen Dipstick 1.0 mg/dL (0.2 mg/dL) Urine Leukocyte Esterase Negative (NEG) Urine RBC 1-2 /HPF (0-2) Urine WBC 5-10 /HPF (0-4) Urine Squamous Epithelial Cells Mod /LPF Urine Bacteria Few /HPF (0-FEW) Urine Mucus Slight /LPF SARS-CoV-2 Antigen (Rapid) Negative (NEGATIVE) Problem List Problems Medical Problems: (1) Acute cholecystitis Status: Acute (2) Right upper quadrant pain Status: Acute Assessment/Plan will have dr Pathak review with patient cards eval noted Justicifation of Admission Dx: Justifications for Admission: Justification of Admission Dx: Yes JUSTIN PATHAK MD 06/03/20 1513: SURGICAL PROGRESS NOTE Assessment/Plan Pt seen and examined. Agree with Ms. London's note Pt feels better and denies complaints abd soft pt not interested in surgery, which is reasonable, given comorbidities. Encourage pt to f/u as outpt if recurrent problems. YELENA LONDON APRN Jun 03, 2020 12:34 JUSTIN PATHAK MD Jun 03, 2020 15:13
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
[2020-06-03 15:00] VITALS: BP 137/60
[2020-06-03] MEDS: hydroCHLOROthiazide 12.5 MG CAPSULE PO SCH (15:19)
[2020-06-03] MEDS: LOSARTAN POTASSIUM 50 MG TABLET. PO SCH (15:19)
[2020-06-03 15:20] VITALS: BP 137/60
[2020-06-03] MEDS: amLODIPine BESYLATE 10 MG TABLET PO SCH (15:20)
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
--- NOTE | 2020-06-03 18:52 | NUR ---
pt discharged home w/ . scripts for flagyl and levaquin called to [facility]. IV removed, cath intact. meds and follow up reviewed. pt stable upon dc.
== END 2020-06-03 18:30 | disposition home or self-care (01) ==
LOC: ER 01:53 → ED HOLD 04:45 → 4 NORTH 06:29
PROVIDERS: ADMIT Family Medicine; ATTEND Family Medicine
DX: K81.0 Acute cholecystitis (principal); I11.0 Hypertensive heart disease with heart failure; I50.32 Chronic diastolic (congestive) heart failure; K21.9 Gastro-esophageal reflux disease without esophagitis; F03.90 Unspecified dementia, unspecified severity, without behavioral disturbance, psychotic disturbance, mood disturbance, and anxiety; F41.9 Anxiety disorder, unspecified; J44.9 Chronic obstructive pulmonary disease, unspecified; F32.9 Major depressive disorder, single episode, unspecified; I25.10 Atherosclerotic heart disease of native coronary artery without angina pectoris; E78.5 Hyperlipidemia, unspecified; L30.9 Dermatitis, unspecified; J30.2 Other seasonal allergic rhinitis; E66.9 Obesity, unspecified; M19.90 Unspecified osteoarthritis, unspecified site; Z90.710 Acquired absence of both cervix and uterus; Z98.890 Other specified postprocedural states; Z68.30 Body mass index [BMI] 30.0-30.9, adult
CPT/HCPCS: 36415; 71045; 76705; 80053; 81001; 83690; 83880; 85025; 85610; 85730; 87086; 87426; 93005; 93306; 96361; 96365; 96366; 96372; 96375; 99285; G0378; J0500; J1956; J2405; J7030; U0003; G0379

== ENCOUNTER 2021-01-06 17:26 | Observation (INO) | payer MEDICARE ==
[~2021-01-06] VITALS: Ht 165.1 cm; Wt 84.0 kg
[~2021-01-06 17:26] MED LIST changes: +AMLO-186 PO; +AMLO-187 PO; -AMLO10TA8 PO; -AMLO5TAB10 PO; +LOSA100T14 PO
[2021-01-06 18:24] LABS: BASO % 1 % (0-3); EOS # 0.1 x10^3/uL (0.0-0.7); EOS % 1 % (0-3); HEMATOCRIT 40.1 % (36.0-47.0); HEMOGLOBIN 13.8 g/dL (12.0-15.5); LYMPH # 1.1 x10^3/uL (1.0-4.8); LYMPH % 15 % (24-48); MEAN CORPUSCULAR HEMOGLOBIN 31 pg (25-35); MEAN CORPUSCULAR HGB CONC 34 g/dL (31-37); MEAN CORPUSCULAR VOLUME 89 fL (79-100); MONO # 0.3 x10^3/uL (0.0-1.1); MONO % 5 % (0-9); NEUT # 5.8 x10^3/uL (1.8-7.7); NEUT % 79 % (31-73); PLATELET COUNT 230 x10^3/uL (140-400); RED BLOOD COUNT 4.49 x10^6/uL (3.50-5.40); RED CELL DISTRIBUTION WIDTH 14.2 % (11.5-14.5); WHITE BLOOD COUNT 7.4 x10^3/uL (4.0-11.0)
--- NOTE | 2021-01-06 18:24 | EKG ---
[facility] [address] [place] [address] Test Date: 2021-01-06 Test Time: 17:45:43 Pat Name: JERRELL WALKER Department: Room: Gender: F Multi Skilled Operator: : 1945 Requested By: LOUISA FERNANDEZ Order Number: [id number] Reading MD: Measurements Intervals [place] Rate: 93 P: -6 [place]: 164 QRS: -39 QRSD: 78 T: 41 QT: 362 QTc: 453 Interpretive Statements SINUS RHYTHM ABNORMAL LEFT AXIS DEVIATION R-S TRANSITION ZONE IN V LEADS DISPLACED TO THE LEFT LEFT ANTERIOR FASCICULAR BLOCK ABNORMAL ECG RI6.02 No previous ECG available for comparison
[2021-01-06 18:33] LABS: CALCIUM 9.2 mg/dL (8.5-10.1); CREATININE 0.8 mg/dL (0.6-1.0); GFR 70.1; POTASSIUM 3.3 mmol/L (3.5-5.1)
--- NOTE | 2021-01-06 18:37 | PHYS DOC ---
Past Medical History Past Medical History: CAD, COPD, GERD, Hypertension, TIA, Other Additional Past Medical Histor: seasoal allergies, eczema Past Surgical History: Coronary Bypass Surgery, Hysterectomy, Other Additional Past Surgical Histo: right upper lobectomy, dilation and curretage Smoking Status: Never Smoker Alcohol Use: None Drug Use: None General Adult EDM: Chief Complaint: CHEST PAIN-CARDIAC NATURE HPI: HPI: Patient is a 75 year old female past medical history of pneumothorax hypertension GERD COPD presents with a chief complaint of chest pain. Patient states chest pain started around 2300 hrs. last night. Patient's pain is located in the left chest and left axilla and left neck. Patient describes pain as a stabbing sensation. She states it lasts for approximately 30 seconds to 1 minute then completely resolves. Patient denies any association with exertion or rest. Patient denies any associated diaphoresis nausea or shortness of breath. At the time my exam patient is chest pain-free. Patient's vital signs are stable and initial EKG is without ischemic changes. Patient did not take aspirin at home. When triaged by nursing --- patient made comments to nursing about hostile relationship between patient and her . Nursing states patient made a homicidal comment towards patient . Nursing consulted PAT team. During my exam-- patient stated she has thoughts of harming her but wound never do so. Review of Systems: Review of Systems: Constitutional: Denies fever or chills. [] Eyes: Denies change in visual acuity. [] HENT: Denies nasal congestion or sore throat. [] Respiratory: Denies cough or shortness of breath. [] Cardiovascular: Positive chest pain GI: Denies abdominal pain, nausea, vomiting, bloody stools or diarrhea. [] : Denies dysuria. [] Musculoskeletal: Denies back pain or joint pain. [] Integument: Denies rash. [] Neurologic: Denies headache, focal weakness or sensory changes. [] Endocrine: Denies polyuria or polydipsia. [] Lymphatic: Denies swollen glands. [] Psychiatric: Denies depression or anxiety. [] Heart Score: HEART Score for Chest Pain: HEART Score for Chest Pain Response (Comments) Value History Moderately Suspicious 1 ECG Nonspecific Repolarizatio 1 Age > 65 2 Risk Factors 1 or 2 Risk Factors 1 Troponin < Normal Limit 0 Total 5 Risk Factors: Risk Factors: DM, Current or recent (<one month) smoker, HTN, HLP, family history of CAD, obesity. Risk Scores: Score 0 - 3: 2.5% MACE over next 6 weeks - Discharge Home Score 4 - 6: 20.3% MACE over next 6 weeks - Admit for Clinical Observation Score 7 - 10: 72.7% MACE over next 6 weeks - Early Invasive Strategies Current Medications: Current Medications Medications (Trade) Dose Ordered Sig/Kaity Start Time Stop Time Status Last Admin Dose Admin Aspirin (Aspirin Chewable) 324 mg 1X ONCE 01/06/21 18:45 01/06/21 18:46 Allergies: Allergies: Allergies Coded Allergies Type Severity Reaction Last Updated Verified Penicillins Allergy Intermediate 01/22/19 Yes cefaclor Allergy Intermediate 01/22/19 Yes codeine Allergy Intermediate 01/22/19 Yes demeclocycline Allergy Intermediate 01/22/19 Yes erythromycin base Allergy Intermediate 01/22/19 Yes meperidine Allergy Intermediate 01/22/19 Yes methylphenidate Allergy Intermediate 01/22/19 Yes nystatin Allergy Intermediate 01/28/19 Yes pentazocine Allergy Intermediate 01/22/19 Yes propoxyphene Allergy Intermediate 01/22/19 Yes pseudoephedrine Allergy Intermediate 01/22/19 Yes triamcinolone Allergy Intermediate 01/22/19 Yes triprolidine Allergy Intermediate 01/22/19 Yes Physical Exam: PE: Constitutional: Well developed, well nourished, no acute distress, non-toxic appearance. [] HENT: Normocephalic, atraumatic, bilateral external ears normal, oropharynx moist, no oral exudates, nose normal. [] Eyes: PERRLA, EOMI, conjunctiva normal, no discharge. [] Neck: Normal range of motion, no tenderness, supple, no stridor. [] Cardiovascular:Heart rate regular rhythm, no murmur [] Lungs & Thorax: Bilateral breath sounds clear to auscultation [] Abdomen: Bowel sounds normal, soft, no tenderness, no masses, no pulsatile masses. [] Skin: Warm, dry, no erythema, no rash. [] Back: No tenderness, no CVA tenderness. [] Extremities: No tenderness, no cyanosis, no clubbing, ROM intact, no edema. [] Neurologic: Alert and oriented X 3, normal motor function, normal sensory function, no focal deficits noted. [] Psychologic: Affect normal, judgement normal, mood normal. [] Current Patient Data: Labs: Laboratory Tests Test 01/06/21 18:10 White Blood Count 7.4 x10^3/uL (4.0-11.0) Red Blood Count 4.49 x10^6/uL (3.50-5.40) Hemoglobin 13.8 g/dL (12.0-15.5) Hematocrit 40.1 % (36.0-47.0) Mean Corpuscular Volume 89 fL (79-100) Mean Corpuscular Hemoglobin 31 pg (25-35) Mean Corpuscular Hemoglobin Concent 34 g/dL (31-37) Red Cell Distribution Width 14.2 % (11.5-14.5) Platelet Count 230 x10^3/uL (140-400) Neutrophils (%) (Auto) 79 % (31-73) H Lymphocytes (%) (Auto) 15 % (24-48) L Monocytes (%) (Auto) 5 % (0-9) Eosinophils (%) (Auto) 1 % (0-3) Basophils (%) (Auto) 1 % (0-3) Neutrophils # (Auto) 5.8 x10^3/uL (1.8-7.7) Lymphocytes # (Auto) 1.1 x10^3/uL (1.0-4.8) Monocytes # (Auto) 0.3 x10^3/uL (0.0-1.1) Eosinophils # (Auto) 0.1 x10^3/uL (0.0-0.7) Basophils # (Auto) 0.0 x10^3/uL (0.0-0.2) Sodium Level 142 mmol/L (136-145) Potassium Level 3.3 mmol/L (3.5-5.1) L Chloride Level 100 mmol/L (98-107) Carbon Dioxide Level 27 mmol/L (21-32) Anion Gap 15 (6-14) H Blood Urea Nitrogen 11 mg/dL (7-20) Creatinine 0.8 mg/dL (0.6-1.0) Estimated GFR (Cockcroft-Gault) 70.1 BUN/Creatinine Ratio 14 (6-20) Glucose Level 110 mg/dL (70-99) H Calcium Level 9.2 mg/dL (8.5-10.1) Total Bilirubin Pending Aspartate Amino Transferase (AST) Pending Alanine Aminotransferase (ALT) Pending Alkaline Phosphatase Pending Total Protein Pending Albumin Pending Albumin/Globulin Ratio Pending Laboratory Tests 01/06/21 18:10 Laboratory Tests 01/06/21 18:10 Vital Signs: Vital Signs Date Time Temp Pulse Resp B/P (MAP) Pulse Ox O2 Delivery O2 Flow Rate FiO2 01/06/21 17:50 98.1 96 16 166/87 (113) 98 Room Air 98.1 EKG: EKG: [] EKG performed at [address] elevation [address] depression no acute ND Radiology/Procedures: Radiology/Procedures: [] Impression: Chest x-ray wet read Heart and mediastinum within normal limits no focal infiltrates no bony abnormalities no acute process Course & Med Decision Making: Course & Med Decision Making Pertinent Labs and Imaging studies reviewed. (See chart for details) [] Patient was evaluated for chief complaint. Work-up consisted of laboratory analysis radiologic imaging and EKG. Results reviewed and discussed with patient. EKG without acute ischemic changes troponin within normal limits chest x-ray with no abnormalities. Patient was treated with aspirin. Patient's heart score is 5. 2145-- Patient assessed by PAT-- recommend psychiatric evaluation. Patient will be admitted for chest pain rule out. Dr York psych with be consulted. Richelle Disclaimer: Richelle Disclaimer: This electronic medical record was generated, in whole or in part, using a voice recognition dictation system. Departure Departure Impression: Primary Impression: Chest pain Additional Impression: Depression Disposition: ADMITTED INPT THIS HOSP Admitting Physician: EBEN Condition: STABLE Referrals: RAJEEV DESHPANDE MD (PCP) LOUISA FERNANDEZ DO Jan 06, 2021 18:37
[2021-01-06 18:39] LABS: ALBUMIN 3.7 g/dL (3.4-5.0); TOTAL BILIRUBIN 0.9 mg/dL (0.2-1.0); TOTAL PROTEIN 7.5 g/dL (6.4-8.2)
[2021-01-06] MEDS ORDERED: ASPIRIN CHEWABLE 81 MG TABLET. PO ONE ×2 (18:45→19:15)
--- NOTE | 2021-01-06 18:55 | RAD ---
INDICATION: Reason: chest pain / Spl. Instructions: / History: COMPARISON: May 2020 FINDINGS: Single view of chest obtained. Calcific atherosclerosis. Cardiac silhouette is not enlarged. Repeat demonstration of mild interstiti al prominence without a definite new region of consolidation. Degenerative changes of the spine IMPRESSION: * Similar exam compared to prior without a definite new region of consolidation Electronically signed by: Ander Nickerson MD (01/06/2021 6:52 PM) [id number]
[2021-01-07 01:54] VITALS: BP 163/71
[2021-01-07] MEDS ORDERED: AMLO-187 PO (02:12)
[2021-01-07] MEDS ORDERED: CETI10TA PO (02:22)
[2021-01-07 02:38] VITALS: BP 163/71
[2021-01-07 07:00] VITALS: BP 134/66
--- NOTE | 2021-01-07 08:52 | PDOC1 ---
History and Physical Date of Admission Date of Admission DATE: 01/07/21 TIME: 08:52 Identification/Chief Complaint Chief Complaint SEEN IN ER WITH CHEST PAIN 75 year old female past medical history of pneumothorax hypertension GERD COPD presents with a chief complaint of chest pain. Patient states chest pain started around 2300 hrs. last night. pain HAS RESOLVED , WAS located in the left chest and left axilla and left neck. //stabbing sensation. lasts for approximately 30 seconds to 1 minute then completely resolves. Patient denies any association with exertion or rest. Patient denies any associated diaphoresis nausea or shortness of breath. is chest pain-free. TODAY Patient's vital signs are stable and initial EKG is without ischemic changes. did not take aspirin at home. patient made comments to nursing about hostile relationship between patient and her . BUT STATED SHE WAS JUST JOKING Past Medical History Past Medical History Past Medical History Past Medical History Past Medical History: CAD, COPD, GERD, Hypertension, TIA, Other Additional Past Medical Histor: seasoal allergies, eczema Past Surgical History: Coronary Bypass Surgery, Hysterectomy, Other Additional Past Surgical Histo: right upper lobectomy, dilation and curretage Smoking Status: Never Smoker Alcohol Use: None Drug Use: None FHX HTN Cardiovascular: CHF, HTN, Other Pulmonary: No pertinent hx CENTRAL NERVOUS SYSTEM: Dementia GI: GERD Heme/Onc: No pertinent hx Hepatobiliary: No pertinent hx Psych: Depression Musculoskeletal: Osteoarthritis Rheumatologic: No pertinent hx Infectious disease: No pertinent hx Renal/: UTI Endocrine: No pertinent hx Past Surgical History Past Surgical History: Hysterectomy, Other Family History Family History: Hypertension Social History Smoke: No ALCOHOL: none Drugs: None Current Problem List Problem List Problems Medical Problems: (1) Chest pain Status: Acute (2) Depression Status: Acute Current Medications Current Medications Current Medications Aspirin (Aspirin Chewable) 324 mg 1X ONCE PO Last administered on 01/06/21at 19:11; Start 01/06/21 at 18:45; Stop 01/06/21 at 19:11; Status DC Aspirin (Aspirin Chewable) 324 mg 1X ONCE PO ; Start 01/06/21 at 19:15; Stop 01/06/21 at 19:16; Status DC Enoxaparin Sodium (Lovenox 80mg Syringe) 80 mg 1X ONCE SQ ; Start 01/06/21 at 22:45; Stop 01/06/21 at 22:44; Status DC Active Scripts Active Nystop (Nystatin) 60 Gm Powder 1 Dev TP BID 30 Days Reported Wal-Zyr (Cetirizine Hcl) 10 Mg Tablet 10 Mg PO PRN Q6HRS Amlodipine Besylate 10 Mg Tablet 10 Mg PO DAILY Advil Liqui-Gels (Ibuprofen) 200 Mg Capsule 200 Mg PO Q6HRS PRN Triamcinolone Acetonide 0.1% Oint (Triamcinolone Acetonide) 15 Gm Oint...g. 1 Dev TP BID MIX WITH EUCERIN DIRECTED BY PHYSICIAN Fish Oil 1,000 Mg Capsule ([place]-3 Fatty Acids/Fish Oil) 1 Each Capsule 1 Each PO DAILY Protonix Packet (Pantoprazole Sodium) 40 Mg Granpkt.dr 40 Mg PO DAILY Allergies Allergies: Coded Allergies: Penicillins (Verified Allergy, Intermediate, 01/22/19) cefaclor (Verified Allergy, Intermediate, 01/22/19) codeine (Verified Allergy, Intermediate, 01/22/19) demeclocycline (Verified Allergy, Intermediate, 01/22/19) erythromycin base (Verified Allergy, Intermediate, 01/22/19) meperidine (Verified Allergy, Intermediate, 01/22/19) methylphenidate (Verified Allergy, Intermediate, 01/22/19) nystatin (Verified Allergy, Intermediate, 01/28/19) Has tolerated nystatin powder pentazocine (Verified Allergy, Intermediate, 01/22/19) propoxyphene (Verified Allergy, Intermediate, 01/22/19) pseudoephedrine (Verified Allergy, Intermediate, 01/22/19) triamcinolone (Verified Allergy, Intermediate, 01/22/19) triprolidine (Verified Allergy, Intermediate, 01/22/19) ROS Review of System Review of Systems: Constitutional: Denies fever or chills. [] Eyes: Denies change in visual acuity. [] HENT: Denies nasal congestion or sore throat. [] Respiratory: Denies cough or shortness of breath. [] Cardiovascular: Positive chest pain, NOW RESOLVED GI: Denies abdominal pain, nausea, vomiting, bloody stools or diarrhea. [] : Denies dysuria. [] Musculoskeletal: Denies back pain or joint pain. [] Integument: Denies rash. [] Neurologic: Denies headache, focal weakness or sensory changes. [] Endocrine: Denies polyuria or polydipsia. [] Lymphatic: Denies swollen glands. [] Psychiatric: Denies depression or anxiety. [] 14 PT ROS OTHERWISE NEG General: YES: Fatigue PSYCHOLOGICAL ROS: YES: Anxiety Eyes: No Blurry vision, No Decreased vision, No Double vision, No Dry eyes, No Excessive tearing, No Eye Pain, No Itchy Eyes, No Loss of vision, No Photophobia, No Scotomata, No Uses contacts, No Uses glasses, No Other Hematological and Lymphatic: No: Bleeding Problems, Blood Clots, Blood Transfusions, Brusing, Night Sweats, Pallor, Swollen Lymph Nodes, Other Gastrointestinal: No Nausea, No Vomiting, No Abdominal Pain, No Diarrhea, No Constipation, No Melena, No Hematochezia, No Other Musculoskeletal: Yes Joint Stiffness; No Gait Disturbance, No Joint Pain, No Joint Swelling, No Muscle Pain, No Muscular Weakness, No Pain In:, No Swelling In:, No Other Skin: No Dry Skin, No Eczema, No Hair Changes, No Lumps, No Mole Changes, No Mottling, No Nail Changes, No Pruritus, No Rash, No Skin Lesion Changes, No Other, No Acne Physical Exam Physical Exam Constitutional: Well developed, well nourished, no acute distress, non-toxic appearance. [] HENT: Normocephalic, atraumatic, bilateral external ears normal, oropharynx moist, no oral exudates, nose normal. [] Eyes: PERRLA, EOMI, conjunctiva normal, no discharge. [] Neck: Normal range of motion, no tenderness, supple, no stridor. [] Cardiovascular:Heart rate regular rhythm, no murmur [] Lungs & Thorax: Bilateral breath sounds clear to auscultation [] Abdomen: Bowel sounds normal, soft, no tenderness, no masses, no pulsatile masses. [] Skin: Warm, dry, no erythema, no rash. [] Back: No tenderness, no CVA tenderness. [] Extremities: No tenderness, no cyanosis, no clubbing, ROM intact, no edema. [] Neurologic: Alert and oriented X 3, normal motor function, normal sensory function, no focal deficits noted. [] Psychologic: Affect normal, judgment normal, mood normal. [] General: Alert, Oriented X3, Cooperative, No acute distress HEENT: EOMI, Mucous membr. moist/pink Lungs: Clear to auscultation, Normal air movement Heart: RRR, no thrills, no gallops, no murmurs Breasts: Not examined Abdomen: Normal bowel sounds, Soft Rectal Exam: not examined PELVIC: Examination not indicated Extremities: No cyanosis Neuro: Normal speech, Cranial nerves 3-12 NL Psych/Mental Status: Mental status NL, Mood NL Vitals Vitals Vital Signs Date Time Temp Pulse Resp B/P (MAP) Pulse Ox O2 Delivery O2 Flow Rate FiO2 01/07/21 07:00 98.0 67 20 134/66 (88) 92 Room Air 98.0 Labs Labs Laboratory Tests Test 01/06/21 18:10 01/06/21 22:29 01/07/21 04:00 White Blood Count 7.4 x10^3/uL (4.0-11.0) Red Blood Count 4.49 x10^6/uL (3.50-5.40) Hemoglobin 13.8 g/dL (12.0-15.5) Hematocrit 40.1 % (36.0-47.0) Mean Corpuscular Volume 89 fL (79-100) Mean Corpuscular Hemoglobin 31 pg (25-35) Mean Corpuscular Hemoglobin Concent 34 g/dL (31-37) Red Cell Distribution Width 14.2 % (11.5-14.5) Platelet Count 230 x10^3/uL (140-400) Neutrophils (%) (Auto) 79 % (31-73) Lymphocytes (%) (Auto) 15 % (24-48) Monocytes (%) (Auto) 5 % (0-9) Eosinophils (%) (Auto) 1 % (0-3) Basophils (%) (Auto) 1 % (0-3) Neutrophils # (Auto) 5.8 x10^3/uL (1.8-7.7) Lymphocytes # (Auto) 1.1 x10^3/uL (1.0-4.8) Monocytes # (Auto) 0.3 x10^3/uL (0.0-1.1) Eosinophils # (Auto) 0.1 x10^3/uL (0.0-0.7) Basophils # (Auto) 0.0 x10^3/uL (0.0-0.2) Sodium Level 142 mmol/L (136-145) Potassium Level 3.3 mmol/L (3.5-5.1) Chloride Level 100 mmol/L (98-107) Carbon Dioxide Level 27 mmol/L (21-32) Anion Gap 15 (6-14) Blood Urea Nitrogen 11 mg/dL (7-20) Creatinine 0.8 mg/dL (0.6-1.0) Estimated GFR (Cockcroft-Gault) 70.1 BUN/Creatinine Ratio 14 (6-20) Glucose Level 110 mg/dL (70-99) Calcium Level 9.2 mg/dL (8.5-10.1) Total Bilirubin 0.9 mg/dL (0.2-1.0) Aspartate Amino Transf (AST/SGOT) 34 U/L (15-37) Alanine Aminotransferase (ALT/SGPT) 32 U/L (14-59) Alkaline Phosphatase 82 U/L (46-116) Troponin I Quantitative < 0.017 ng/mL (0.000-0.055) < 0.017 ng/mL (0.000-0.055) < 0.017 ng/mL (0.000-0.055) Total Protein 7.5 g/dL (6.4-8.2) Albumin 3.7 g/dL (3.4-5.0) Albumin/Globulin Ratio 1.0 (1.0-1.7) Laboratory Tests Test 01/06/21 18:10 01/06/21 22:29 01/07/21 04:00 White Blood Count 7.4 x10^3/uL (4.0-11.0) Red Blood Count 4.49 x10^6/uL (3.50-5.40) Hemoglobin 13.8 g/dL (12.0-15.5) Hematocrit 40.1 % (36.0-47.0) Mean Corpuscular Volume 89 fL (79-100) Mean Corpuscular Hemoglobin 31 pg (25-35) Mean Corpuscular Hemoglobin Concent 34 g/dL (31-37) Red Cell Distribution Width 14.2 % (11.5-14.5) Platelet Count 230 x10^3/uL (140-400) Neutrophils (%) (Auto) 79 % (31-73) Lymphocytes (%) (Auto) 15 % (24-48) Monocytes (%) (Auto) 5 % (0-9) Eosinophils (%) (Auto) 1 % (0-3) Basophils (%) (Auto) 1 % (0-3) Neutrophils # (Auto) 5.8 x10^3/uL (1.8-7.7) Lymphocytes # (Auto) 1.1 x10^3/uL (1.0-4.8) Monocytes # (Auto) 0.3 x10^3/uL (0.0-1.1) Eosinophils # (Auto) 0.1 x10^3/uL (0.0-0.7) Basophils # (Auto) 0.0 x10^3/uL (0.0-0.2) Sodium Level 142 mmol/L (136-145) Potassium Level 3.3 mmol/L (3.5-5.1) Chloride Level 100 mmol/L (98-107) Carbon Dioxide Level 27 mmol/L (21-32) Anion Gap 15 (6-14) Blood Urea Nitrogen 11 mg/dL (7-20) Creatinine 0.8 mg/dL (0.6-1.0) Estimated GFR (Cockcroft-Gault) 70.1 BUN/Creatinine Ratio 14 (6-20) Glucose Level 110 mg/dL (70-99) Calcium Level 9.2 mg/dL (8.5-10.1) Total Bilirubin 0.9 mg/dL (0.2-1.0) Aspartate Amino Transf (AST/SGOT) 34 U/L (15-37) Alanine Aminotransferase (ALT/SGPT) 32 U/L (14-59) Alkaline Phosphatase 82 U/L (46-116) Troponin I Quantitative < 0.017 ng/mL (0.000-0.055) < 0.017 ng/mL (0.000-0.055) < 0.017 ng/mL (0.000-0.055) Total Protein 7.5 g/dL (6.4-8.2) Albumin 3.7 g/dL (3.4-5.0) Albumin/Globulin Ratio 1.0 (1.0-1.7) Images Images INDICATION: Reason: chest pain / Spl. Instructions: / History: COMPARISON: May 2020 FINDINGS: Single view of chest obtained. Calcific atherosclerosis. Cardiac silhouette is not enlarged. Repeat demonstration of mild interstitial prominence without a definite new region of c onsolidation. Degenerative changes of the spine IMPRESSION: * Similar exam compared to prior without a definite new region of consolidation Electronically signed by: Ander Nickerson MD (01/06/2021 6:52 PM) [id number] DICTATED and SIGNED BY: ANDER NICKERSON MD DATE: 01/06/21 [id number] ECHOCARDIOGRAM ECHOCARDIOGRAM <Conclusion> The left ventricle is normal size. The left ventricular systolic function is normal and the ejection fraction is within normal range. The Ejection Fraction is 55-60%. There is mild concentric left ventricular hypertrophy. Doppler and Color Flow revealed no significant aortic regurgitation. Calculated aortic valve area is 3.26 cm2 with maximum pressure gradient of 8 mmHg and mean pressure gradient of 4 mmHg. There is no significant aortic valvular stenosis. Doppler and Color-flow revealed trace mitral regurgitation. Doppler and Color Flow revealed trace tricuspid regurgitation with an estimated PAP of 37 mmHg. VTE Prophylaxis Ordered VTE Prophylaxis Devices: Yes VTE Pharmacological Prophylaxi: Yes Assessment/Plan Assessment/Plan Impression: Chest pain Atypical chest pain: possibly MSK and anxiety./ gerd Trops nml EKG S without acute changes GERD MORBID OBESITY Depression, , anxiety MILD PLAN ADMITTED cvc observation CARDIOLOGY CONSULT SERIAL TROPONIN I DVT PROPHYLAXIS home norvasc. BEGIN prozac 10 mg po daily see Dr. Doherty on follow up on February 17 at 2PM. lexiscan as an outpt dictated Justifications for Admission Other Justification OBI SAENZ MD Jan 07, 2021 08:52
[2021-01-07 08:57] LABS: CALCIUM 8.9 mg/dL (8.5-10.1); CHOLESTEROL/HDL RATIO 4.8; CREATININE 0.9 mg/dL (0.6-1.0); GFR 61.2; POTASSIUM 3.2 mmol/L (3.5-5.1)
[2021-01-07] MEDS ORDERED: POTASSIUM CHLORIDE 20 MEQ TABLET.ER. PO ONE (09:15)
--- NOTE | 2021-01-07 10:33 | PDOC2 ---
BERNADETTE DOMINIQUE [employer]IMER [employer]ER 01/07/21 1033: CARDIAC CONSULT DATE OF CONSULT Date of Consult DATE: 01/07/21 TIME: 10:07 REASON FOR CONSULT Reason for Consult: Chest pain REFERRING PHYSICIAN Referring Physician: Esperanza SOURCE Source: Chart review, Patient HISTORY OF PRESENT ILLNESS HISTORY OF PRESENT ILLNESS This is an anxious 75 yo female admitted for complains of chest pain. Reports sharp pain to her left chest that goes to her shoulder. This aches intermittently but no associated SOA. No n/v. Denies any exertional CP. No recent heavy lifting. No fever or chills. No falls or any recent injury. She is worried about being mad all the time. She constantly argues with her at home and is very irritable. So far no physical altercations and reports just verbal. Not depressed but anxious about having a resolution about her family dynamics. No known CAD. She still have gallstones and is not bothering her PAST MEDICAL HISTORY Past Medical History Cardiovascular: CHF, HTN, Other (asymptomatic SB) CENTRAL NERVOUS SYSTEM: Dementia GI: GERD, cholelithiasis Psych: Depression Musculoskeletal: Osteoarthritis ENT: Other (cataract) Renal/: UTI Endocrine: No pertinent hx Dermatology: Psoriasis PAST SURGICAL HISTORY Past Surgical History Hysterectomy (partial), Other (RUL lobectomy) FAMILY HISTORY Family History: Hypertension SOCIAL HISTORY Smoke: No ALCOHOL: none Drugs: None Lives: with Family CURRENT MEDICATIONS CURRENT MEDICATIONS Current Medications Medications (Trade) Dose Ordered Sig/Kaity Route PRN Reason Start Time Stop Time Status Last Admin Dose Admin Aspirin (Aspirin Chewable) 324 mg 1X ONCE PO 01/06/21 18:45 01/06/21 19:11 DC 01/06/21 19:11 ALLERGIES ALLERGIES: Coded Allergies: Penicillins (Verified Allergy, Intermediate, 01/22/19) cefaclor (Verified Allergy, Intermediate, 01/22/19) codeine (Verified Allergy, Intermediate, 01/22/19) demeclocycline (Verified Allergy, Intermediate, 01/22/19) erythromycin base (Verified Allergy, Intermediate, 01/22/19) meperidine (Verified Allergy, Intermediate, 01/22/19) methylphenidate (Verified Allergy, Intermediate, 01/22/19) nystatin (Verified Allergy, Intermediate, 01/28/19) Has tolerated nystatin powder pentazocine (Verified Allergy, Intermediate, 01/22/19) propoxyphene (Verified Allergy, Intermediate, 01/22/19) pseudoephedrine (Verified Allergy, Intermediate, 01/22/19) triamcinolone (Verified Allergy, Intermediate, 01/22/19) triprolidine (Verified Allergy, Intermediate, 01/22/19) ROS Review of System 14 point ROS evlauated with pertinent positives noted per HPI PHYSICAL EXAM General: Alert, Oriented X3, Cooperative, No acute distress HEENT: Atraumatic, Mucous membr. moist/pink Heart: Regular rate (SR), Normal S1, Normal S2, No murmurs Abdomen: Soft, No tenderness Extremities: No cyanosis, No edema Skin: No breakdown, No significant lesion Neuro: Normal speech, Sensation intact Psych/Mental Status: Mental status NL, Mood NL MUSCULOSKELETAL: Osteoarthritic changes both hands VITALS/I&O VITALS/I&O: Vital Signs Date Time Temp Pulse Resp B/P (MAP) Pulse Ox O2 Delivery O2 Flow Rate FiO2 01/07/21 08:00 Room Air 01/07/21 07:00 98.0 67 20 134/66 (88) 92 98.0 I & O 01/06/21 01/06/21 01/07/21 15:00 23:00 07:00 Intake Total 250 ml Balance 250 ml LABS Lab: Laboratory Tests Test 01/06/21 18:10 01/06/21 22:29 01/07/21 04:00 White Blood Count 7.4 x10^3/uL (4.0-11.0) Red Blood Count 4.49 x10^6/uL (3.50-5.40) Hemoglobin 13.8 g/dL (12.0-15.5) Hematocrit 40.1 % (36.0-47.0) Mean Corpuscular Volume 89 fL (79-100) Mean Corpuscular Hemoglobin 31 pg (25-35) Mean Corpuscular Hemoglobin Concent 34 g/dL (31-37) Red Cell Distribution Width 14.2 % (11.5-14.5) Platelet Count 230 x10^3/uL (140-400) Neutrophils (%) (Auto) 79 % (31-73) H Lymphocytes (%) (Auto) 15 % (24-48) L Monocytes (%) (Auto) 5 % (0-9) Eosinophils (%) (Auto) 1 % (0-3) Basophils (%) (Auto) 1 % (0-3) Neutrophils # (Auto) 5.8 x10^3/uL (1.8-7.7) Lymphocytes # (Auto) 1.1 x10^3/uL (1.0-4.8) Monocytes # (Auto) 0.3 x10^3/uL (0.0-1.1) Eosinophils # (Auto) 0.1 x10^3/uL (0.0-0.7) Basophils # (Auto) 0.0 x10^3/uL (0.0-0.2) Sodium Level 142 mmol/L (136-145) 141 mmol/L (136-145) Potassium Level 3.3 mmol/L (3.5-5.1) L 3.2 mmol/L (3.5-5.1) L Chloride Level 100 mmol/L (98-107) 100 mmol/L (98-107) Carbon Dioxide Level 27 mmol/L (21-32) 30 mmol/L (21-32) Anion Gap 15 (6-14) H 11 (6-14) Blood Urea Nitrogen 11 mg/dL (7-20) 14 mg/dL (7-20) Creatinine 0.8 mg/dL (0.6-1.0) 0.9 mg/dL (0.6-1.0) Estimated GFR (Cockcroft-Gault) 70.1 61.2 BUN/Creatinine Ratio 14 (6-20) Glucose Level 110 mg/dL (70-99) H 119 mg/dL (70-99) H Calcium Level 9.2 mg/dL (8.5-10.1) 8.9 mg/dL (8.5-10.1) Total Bilirubin 0.9 mg/dL (0.2-1.0) Aspartate Amino Transferase (AST) 34 U/L (15-37) Alanine Aminotransferase (ALT) 32 U/L (14-59) Alkaline Phosphatase 82 U/L (46-116) Troponin I Quantitative < 0.017 ng/mL (0.000-0.055) < 0.017 ng/mL (0.000-0.055) < 0.017 ng/mL (0.000-0.055) Total Protein 7.5 g/dL (6.4-8.2) Albumin 3.7 g/dL (3.4-5.0) Albumin/Globulin Ratio 1.0 (1.0-1.7) Triglycerides Level 120 mg/dL (0-150) Cholesterol Level 212 mg/dL (0-200) H LDL Cholesterol, Calculated 144 mg/dL (0-100) H VLDL Cholesterol, Calculated 24 mg/dL (0-40) Non-HDL Cholesterol Calculated 168 mg/dL (0-129) H HDL Cholesterol 44 mg/dL (40-60) Cholesterol/HDL Ratio 4.8 Thyroid Stimulating Hormone (TSH) 2.209 uIU/mL (0.358-3.74) Laboratory Tests 01/06/21 18:10 Laboratory Tests 01/06/21 18:10 01/07/21 04:00 ECHOCARDIOGRAM ECHOCARDIOGRAM <Conclusion> The left ventricle is normal size. The left ventricular systolic function is normal and the ejection fraction is within normal range. The Ejection Fraction is 55-60%. There is mild concentric left ventricular hypertrophy. Doppler and Color Flow revealed no significant aortic regurgitation. Calculated aortic valve area is 3.26 cm2 with maximum pressure gradient of 8 mmHg and mean pressure gradient of 4 mmHg. There is no significant aortic valvular stenosis. Doppler and Color-flow revealed trace mitral regurgitation. Doppler and Color Flow revealed trace tricuspid regurgitation with an estimated PAP of 37 mmHg. DATE: 06/03/20854 ASSESSMENT/PLAN ASSESSMENT/PLAN 1. Atypical chest pain: possibly MSK and anxiety. Trops nml EKG S without acute changes 2. Anxiety: constant verbal altercation with spouse 3. HTN: controlled 4. Hx of asymptomatic SB 5. Dementia 6. GERD with cholelithiasis: no symptoms 7. Chronic diastolic CHF: compensated 8. Hypokalemia 9. HLP Recommendations 1. ASA start on low dose statin 2. Psych eval pending 3. Continue home norvasc. 4. Follow up with Dr. Doherty on follow up on February 17 at 2PM. Plan for lexiscan as an outpt 5. Nothing further cardiac whitley JOVANNA HUGHES MD 01/07/21 2480: CARDIAC CONSULT ASSESSMENT/PLAN ASSESSMENT/PLAN The patient was seen and interviewed as well as examined at the bedside. The chart was reviewed. The case was discussed. Agree with the plan of care. BERNADETTE DOMINIQUE APRN Jan 07, 2021 10:33 JOVANNA HUGHES MD Jan 07, 2021 22:43
[2021-01-07 11:00] VITALS: BP 101/58
[2021-01-07] MEDS ORDERED: TRIAMCINOLONE ACETONIDE 0.1% TOPICAL OINTMENT 15GM TUBE. TP SCH (11:00)
[2021-01-07] MEDS ORDERED: OMEGA-3 FATTY ACIDS/FISH OIL 1,000 MG CAPSULE. PO SCH (11:00)
[2021-01-07] MEDS ORDERED: NYSTATIN TOPICAL POWDER 15GM BOTTLE. TP SCH (11:00)
[2021-01-07] MEDS ORDERED: PANTOPRAZOLE 40 MG TABLET.DR. PO SCH (11:00)
[2021-01-07] MEDS ORDERED: amLODIPine BESYLATE 10 MG TABLET PO SCH (11:00)
--- NOTE | 2021-01-07 11:11 | NUR ---
SS following for discharge planning. SS reviewed pt chart and discussed with pt RN. Pt is from home with spouse and is currently on room air. Cardiology signed off. Probable discharge to home today. SS will continue to follow for discharge planning.
[2021-01-07] MEDS ORDERED: ATOR10TA60 PO (11:34)
[2021-01-07] MEDS ORDERED: ASPI-886 PO (11:34)
[2021-01-07] MEDS ORDERED: FLUO10CA15 PO (11:34)
--- NOTE | 2021-01-07 11:36 | DISCH ---
DISCHARGE INSTRUCTIONS Condition on Discharge Condition on Discharge: Stable Activity After Discharge Activity Instructions for Disc: Activity as tolerated Lifting Instructions after Dis: No heavy lifting, No pulling or pushing Exercise Instruction after Dis: Progress as tolerated Driving Instructions after Dis: Do not drive today Weight Bearing Status after Di: No restrictions Diet after Discharge Diet after Discharge: GI Soft Diet Texture: Regular Liquid Texture: Thin Liquid Swallowing Supervision: None needed Wound Incision Care Wound/Incision Care: No wound care needed Checks after Discharge Checks after discharge: Check blood press - daily Contacting the DR. after DC Call your doctor for: If your condition worsens Follow-Up Follow up with: pcp in 5-7 days Follow Up With: cardiology soon as directed Treatment/Equipment after DC Adaptive Equipment Issued: None OBI SAENZ MD Jan 07, 2021 11:36
[2021-01-07] MEDS ORDERED: FLUoxetine HCL 10 MG CAPSULE PO SCH (13:00)
--- NOTE | 2021-01-07 13:26 | NUR ---
Discharged patient to home. Discharge instructions given. PIV and heart monitor removed. Escorted patient off unit per wheelchair into a private vehicle.
--- NOTE | 2021-01-07 13:37 | HP ---
ADMIT DATE: 01/07/2021 SHORT STAY SUMMARY CHIEF COMPLAINT: Chest pain, anxiety, GERD symptoms. HISTORY OF PRESENT ILLNESS: This 75-year-old pleasant female with past history of COPD, who presents with chest pain which began at 2300 hours last evening. Pain was located in the left axilla and left neck, stabbing, lasted for 30 seconds to a minute and then resolved. Denied any association with exertion or activity. Denies any diaphoresis, nausea or shortness of breath. Today, she is complaining of chest pain. Troponins were negative. She also notes some stress at home with her , but states she was just joking when she stated she was at times of harming. She states this is just normal marital stress. PAST MEDICAL HISTORY: Significant for esophageal reflux disease, hypertension. PAST SURGICAL HISTORY: CABG, hysterectomy, right upper lobectomy. SOCIAL HISTORY: She has never smoked. No history of drug use. FAMILY HISTORY: Possibly has dementia in family. There is no history of osteoarthritis. CURRENT MEDICATIONS: Please see medication reconciliation. ALLERGIES: INCLUDE PENICILLIN, CEFACLOR, CODEINE, VANCOMYCIN, ERYTHROMYCIN, MEPERIDINE, PSEUDOEPHEDRINE, TICLOPIDINE. REVIEW OF SYSTEMS: She denies chills, fever, nasal congestion or sore throat. She had chest pain last night that is now resolved. Denies abdominal pain, vomiting, blood in stools or melena. Denies diarrhea. Denies dysuria, hematuria, back pain or joint pain. Denies headache, focal weakness or sensory loss. Denies polyuria. Denies swollen glands. She does have some mild depression and anxiety, nothing severe. Denies bleeding problems, blood clots. Denies night sweats, constipation or melena. Denies muscle pain, muscle weakness, or difficulty swallowing. No dry skin or eczema. PHYSICAL EXAMINATION NECK: Supple. Throat and pharynx are clear. LUNGS: Clear to auscultation. ABDOMEN: Soft. NEUROLOGIC: Cranial nerves III through XII are grossly intact. Mental status is normal. Mood is normal limits. Reasoning and judgment are normal. Muscles of mastication are symmetric. There is no facial asymmetry. LABORATORY DATA: White count 7.4, hemoglobin 13.8, platelets 230,000. Potassium 3.3, chloride 100, BUN 11, creatinine 0.8, glucose 110. Troponin negative x 3. Albumin 3.7. Chest x-ray: Mild interstitial prominence without consolidation. Degenerative changes of the lumbar spine. Echocardiogram recently done on 01/06/2021 shows EF of 55-60% with mild LVH, aortic valve was 3.26 cm. No significant valvular stenosis. Pulmonary artery pressure is 37 with mild tricuspid regurgitation. ASSESSMENT: 1. Chest pain with atypical symptoms, probably gastroesophageal reflux disease with multiple skeletal discomfort and anxiety. 2. Morbid obesity. 3. Mild anxiety. PLAN: Admitted for observation and discharged home today. Cardiology consult was in agreement with above. Serial troponins are negative x 3. Continue Norvasc 10 mg daily, begin Prozac [address] Meadows on 02/17/2021 at 2:00 p.m. for a Lexiscan scheduling. Prognosis is excellent. Compliance with discharge medications, please see medication reconciliation. OBI SAENZ MD DR: ROSA ELENA/baldo JOB#: [id number] / [id number]
[2021-01-07] MEDS ORDERED: ATORVASTATIN CALCIUM 10 MG TABLET. PO SCH (21:00)
[2021-01-08] MEDS ORDERED: ASPIRIN ENTERIC COATED 81 MG TABLET.DR. PO SCH (08:00)
== END 2021-01-07 13:19 | disposition home or self-care (01) ==
LOC: ER 17:26 → 2 NORTH 01-07 00:48
PROVIDERS: ADMIT Internal Medicine; ATTEND Internal Medicine
DX: R07.89 Other chest pain (principal); F32.9 Major depressive disorder, single episode, unspecified; K21.9 Gastro-esophageal reflux disease without esophagitis; E66.01 Morbid (severe) obesity due to excess calories; F41.9 Anxiety disorder, unspecified; I25.10 Atherosclerotic heart disease of native coronary artery without angina pectoris; I11.0 Hypertensive heart disease with heart failure; I50.32 Chronic diastolic (congestive) heart failure; J44.9 Chronic obstructive pulmonary disease, unspecified; K80.20 Calculus of gallbladder without cholecystitis without obstruction; M19.90 Unspecified osteoarthritis, unspecified site; E78.5 Hyperlipidemia, unspecified; E87.6 Hypokalemia; F03.90 Unspecified dementia, unspecified severity, without behavioral disturbance, psychotic disturbance, mood disturbance, and anxiety; Z86.73 Personal history of transient ischemic attack (TIA), and cerebral infarction without residual deficits; Z90.711 Acquired absence of uterus with remaining cervical stump; Z95.1 Presence of aortocoronary bypass graft; Z90.710 Acquired absence of both cervix and uterus; Z98.890 Other specified postprocedural states; Z79.82 Long term (current) use of aspirin; Z98.49 Cataract extraction status, unspecified eye; Z68.30 Body mass index [BMI] 30.0-30.9, adult
CPT/HCPCS: 36415; 71045; 80048; 80053; 80061; 83880; 84443; 84484; 85025; 93005; 99285; G0378; G0379

== ENCOUNTER 2021-01-11 04:59 | Emergency (ER) | payer MEDICARE ==
[~2021-01-11] VITALS: Ht 162.6 cm; Wt 84.0 kg
[~2021-01-11 04:59] MED LIST changes: +ASPI-886 PO; +ATOR10TA60 PO; +CETI10TA PO; +FLUO10CA15 PO
--- NOTE | 2021-01-11 05:14 | PHYS DOC ---
Past Medical History Past Medical History: CAD, COPD, GERD, Hypertension, TIA, Other Additional Past Medical Histor: seasoal allergies, eczema Past Surgical History: Coronary Bypass Surgery, Hysterectomy, Other Additional Past Surgical Histo: right upper lobectomy, dilation and curretage Smoking Status: Never Smoker Alcohol Use: None Drug Use: None General Adult EDM: Chief Complaint: UPPER EXTREMITY PAIN HPI: HPI: Patient is a 75 year old female presents with the chief complaint of left arm pain with numbness and tingling in fingers. Patient states onset 0300hrs. Patient denies any injury. No associated chest pain or shortness of breath. Patient denies trying any home medications. Review of Systems: Review of Systems: Constitutional: Denies fever or chills. [] Eyes: Denies change in visual acuity. [] HENT: Denies nasal congestion or sore throat. [] Respiratory: Denies cough or shortness of breath. [] Cardiovascular: Denies chest pain or edema. [] GI: Denies abdominal pain, nausea, vomiting, bloody stools or diarrhea. [] : Denies dysuria. [] Musculoskeletal: positive arm pain Integument: Denies rash. [] Neurologic: Denies headache, focal weakness or sensory changes. [] Endocrine: Denies polyuria or polydipsia. [] Lymphatic: Denies swollen glands. [] Psychiatric: Denies depression or anxiety. [] Heart Score: Risk Factors: Risk Factors: DM, Current or recent (<one month) smoker, HTN, HLP, family history of CAD, obesity. Risk Scores: Score 0 - 3: 2.5% MACE over next 6 weeks - Discharge Home Score 4 - 6: 20.3% MACE over next 6 weeks - Admit for Clinical Observation Score 7 - 10: 72.7% MACE over next 6 weeks - Early Invasive Strategies Allergies: Allergies: Allergies Coded Allergies Type Severity Reaction Last Updated Verified Penicillins Allergy Intermediate 01/22/19 Yes cefaclor Allergy Intermediate 01/22/19 Yes codeine Allergy Intermediate 01/22/19 Yes demeclocycline Allergy Intermediate 01/22/19 Yes erythromycin base Allergy Intermediate 01/22/19 Yes meperidine Allergy Intermediate 01/22/19 Yes methylphenidate Allergy Intermediate 01/22/19 Yes nystatin Allergy Intermediate 01/28/19 Yes pentazocine Allergy Intermediate 01/22/19 Yes propoxyphene Allergy Intermediate 01/22/19 Yes pseudoephedrine Allergy Intermediate 01/22/19 Yes triamcinolone Allergy Intermediate is on HOME MED list 01/10/21 Yes triprolidine Allergy Intermediate 01/22/19 Yes Physical Exam: PE: Constitutional: Well developed, well nourished, no acute distress, non-toxic appearance. [] HENT: Normocephalic, atraumatic, bilateral external ears normal, oropharynx moist, no oral exudates, nose normal. [] Eyes: PERRLA, EOMI, conjunctiva normal, no discharge. [] Neck: Normal range of motion, no tenderness, supple, no stridor. [] Cardiovascular:Heart rate regular rhythm, no murmur [] Lungs & Thorax: Bilateral breath sounds clear to auscultation [] Abdomen: Bowel sounds normal, soft, no tenderness, no masses, no pulsatile masses. [] Skin: Warm, dry, no erythema, no rash. [] Back: No tenderness, no CVA tenderness. [] Extremities: No tenderness, no cyanosis, no clubbing, ROM intact, no edema. [] Neurologic: Alert and oriented X 3, normal motor function, normal sensory function, no focal deficits noted. [no focal weakness] Psychologic: Affect normal, judgement normal, mood normal. [] Left axillary/arm exam-- No swelling swollen lymph nodes no warmth of skin full range of motion of left upper extremity fine motor movement intact NVI EKG: EKG: EKG performed at 526 heart rate [address] elevation no ST depression no acute AK [] Radiology/Procedures: Radiology/Procedures: [] Course & Med Decision Making: Course & Med Decision Making Pertinent Labs and Imaging studies reviewed. (See chart for details) []Patient treated norga. EKG normal Denies chest pain. Suspect musculoskeletal pain. Dragon Disclaimer: Dragon Disclaimer: This electronic medical record was generated, in whole or in part, using a voice recognition dictation system. Departure Departure Impression: Primary Impression: Arm pain Disposition: 01 DC HOME SELF CARE/HOMELESS Condition: STABLE Referrals: RAJEEV DESHPANDE MD (PCP) Patient Instructions: Musculoskeletal Pain Scripts Hydrocodone/Acetaminophen (Hydrocodone-Acetamin 5-325 mg) 1 Each Tablet 1 EACH PO Q4-6HRS, #20 TAB Prov: LOUISA FERNANDEZ DO 01/11/21 LOUISA FERNANDEZ DO Jan 11, 2021 05:14
[2021-01-11] MEDS ORDERED: HYDR-2759 PO (05:33)
[2021-01-11 05:40] VITALS: BP 133/63
--- NOTE | 2021-01-11 05:48 | EKG ---
[facility] [address] [place] [address] Test Date: 2021-01-11 Test Time: 05:26:03 Pat Name: JERRELL WALKER Department: Room: Gender: F Breastfeeding Program Coordinator: : 1945 Requested By: LOUISA FERNANDEZ Order Number: [id number] Reading MD: Eros Sandoval MD Measurements Intervals [place] Rate: 66 P: 28 WV: 186 QRS: -28 QRSD: 78 T: 33 QT: 418 QTc: 440 Interpretive Statements SINUS RHYTHM Electronically Signed On 01-11-2021 10:27:02 FIRE ENGINE PUMP OPERATOR by Eros Sandoval MD
[2021-01-11] MEDS ORDERED: HYDROcodone/APAP 5/325MG 1 TAB TABLET PO ONE (06:00)
== END 2021-01-11 05:53 | disposition home or self-care (01) ==
LOC: ER 04:59
DX: M79.602 Pain in left arm (principal); R60.0 Localized edema; J44.9 Chronic obstructive pulmonary disease, unspecified; K21.9 Gastro-esophageal reflux disease without esophagitis; Z86.73 Personal history of transient ischemic attack (TIA), and cerebral infarction without residual deficits; I11.9 Hypertensive heart disease without heart failure; Z98.890 Other specified postprocedural states; Z90.710 Acquired absence of both cervix and uterus; Z88.0 Allergy status to penicillin; Z88.5 Allergy status to narcotic agent; Z88.1 Allergy status to other antibiotic agents; Z88.8 Allergy status to other drugs, medicaments and biological substances
CPT/HCPCS: 93005; 99284